=== PATIENT | female | born 1990 | race Two or more races ===

== ENCOUNTER 2024-09-06 20:22 | Emergency (ER) | payer MEDICAID, SELFPAY | END 2024-09-06 20:26 | disposition left against medical advice (07) | LOC: SERX 20:28 | PROVIDERS: Emergency Provider Emergency Medicine | DX: Z53.21 Procedure and treatment not carried out due to patient leaving prior to being seen by health care provider (principal) ==

== ENCOUNTER 2024-10-06 20:16 | Emergency (ER) | payer MEDICAID, SELFPAY ==
[2024-10-06 20:17] VITALS: BMI 11.1
[2024-10-06 20:51] VITALS: BP 110/73; PULSE 93; RESP 18; TEMP 36.7; O2SAT 100
--- NOTE | 2024-10-06 22:10 | XR_ITS ---
Examination: Abdomen sonogram, Limited Date and time of exam: October 06, 2024 1039 hrs. Indications: Abdominal pain beginning 3 days ago Technique: Real-time lópez scale transabdominal sonographic images of the upper abdomen obtained. Findings: Cholelithiasis, normal gallbladder wall Normal common bile duct 0.3 cm Pancreatic head 2.7 cm Liver 18.6 cm smooth contour no focal liver lesions Normal hepatopedal portal venous flow Patent IVC Impression: Cholelithiasis, negative for cholecystitis Hepatomegaly 18.6 cm no focal liver lesions
--- NOTE | 2024-10-06 22:10 | EDRME_ITS ---
Rapid Medical Screening Exam [facility] Arrival date/time: 10/06/24 20:16 34F with history of gallstones presents to ED with RUQ/epigastric pain and N/V. Patient was supposed to get gallbladder removed but she was at the time. Chief Complaint: Abdominal Pain Vital signs: Vital Signs Temperature 98.1 F 10/06/24 20:51 Pulse Rate 93 10/06/24 20:51 Respiratory Rate 18 10/06/24 20:51 Blood Pressure 110/73 10/06/24 20:51 Pulse Oximetry (%) 100 10/06/24 20:51 Oxygen Delivery Method Room Air 10/06/24 20:51
[2024-10-06 22:52] LABS: Collection Type, Urine Clean Catch
[2024-10-06 23:05] LABS: HCG Qualitative,Urine Negative
[2024-10-06 23:05] LABS: Basophils % (Auto) 0 % (0-2.5); Eosinophils # (Auto) 0.1 Thou/mm3 (0.0-0.5); Eosinophils % (Auto) 1 % (0-10); Hematocrit 39.7 % (36.0-46.0); Hemoglobin 12.3 g/dL (12.0-16.0); Immature Granulocytes % (Auto) 0 % (0-0); Immature Granulocytes Auto 0.02 Thou/mm3 (0.00-0.00); Lymphocytes # (Auto) 3.5 Thou/mm3 (1.0-4.8); Lymphocytes % (Auto) 32 % (10-50); Mean Corpuscular Hemoglobin 25.3 pg (25.0-35.0); Mean Corpuscular Volume 82 fL (80-100); Monocytes # (Auto) 0.7 Thou/mm3 (0.0-0.8); Monocytes % (Auto) 6 % (0-12); Neutrophils # (Auto) 6.6 Thou/mm3 (1.8-7.7); Neutrophils % (Auto) 60 % (37-80); Nucleated Red Blood Cell % 0 /100 WBC (0); Platelet Count 408 Thou/mm3 (140-440); RDW Standard Deviation 55.3 fL (36.4-46.3); Red Blood Count 4.87 Miln/mm3 (4.00-5.20)
[2024-10-06 23:06] LABS: Bilirubin,Urine Negative (Negative); Blood,Urine 1+ (Negative); Clarity,Urine Turbid (Clear/Hazy); Color,Urine Yellow (Lt Yel-Yel); Glucose, Urine Negative (Negative); Ketones,Urine Negative (Negative); Leukocyte Esterase,Urine Positive (Negative); Nitrite,Urine Negative (Negative); PH,Urine 6.5 (5.0-7.0); Protein,Urine 1+ (Neg - Trace); RBC,Urine 23 /hpf (0-3); Specific Gravity,Urine 1.029 (1.001-1.035); Squamous Epithelial Cell,Urine 9 /hpf (0-5); Urobilinogen,Urine Negative mg/dL (0.0-1.0); WBC,Urine 48 /hpf (0-5)
[2024-10-06 23:06] LABS: Alanine Aminotransferase 17 U/L (10-49); Albumin, Serum 4.9 gm/dL (3.5-5.0); Albumin/Globulin Ratio 1.7 (1.2-2.2); Alkaline Phosphatase 129 U/L (46-116); Anion Gap 6 (7-16); Aspartate Amino Transferase 13 U/L (0-34); BUN/Creatinine Ratio 20 Ratio (12-20); Bilirubin,Total 0.7 mg/dL (0.3-1.2); Blood Urea Nitrogen 12 mg/dL (9-23); Calcium 10.7 mg/dL (8.3-10.6); Calcium (Corrected) 10.7 mg/dL (8.5-10.1); Carbon Dioxide 32.7 mMol/L (20.0-31.0); Chloride 100 mMol/L (98-107); Creatinine (Component) 0.6 mg/dL (0.6-1.3); Estimated Creatinine Clearance 61.5 mL/min (>60); Globulin 2.9 gm/dL (2.3-3.5); Glucose 126 mg/dL (74-106); Lipase 26 U/L (12-53); Osmolality,Calculated 279 (275-295); Potassium 3.9 mMol/L (3.4-5.1); Sodium 139 mMol/L (136-145); Total Protein 7.8 gm/dL (5.7-8.2); eGFR > 60 See Note
[2024-10-06 23:21] LABS: Amphetamine/Methamp Scrn,U Positive (Negative); Barbiturate Screen,Urine Negative (Negative); Benzodiazepines Screen,Urine Negative (Negative); Benzoylecgonine Screen, Ur Negative (Negative); Fentanyl Screen,Urine Negative (Negative); Opiate Screen,Urine Negative (Negative); THC Screen,Urine Negative (Negative)
[2024-10-06 23:56] VITALS: BP 122/91; PULSE 70; RESP 18; O2SAT 98
--- NOTE | 2024-10-06 23:56 | EDNOTE_ITS ---
ED Abdominal Pain RME/HPI General Chief Complaint: Abdominal Pain Stated complaint: RIGHT UPPER ABD PAIN Time seen by provider: 10/07/24 06:23 Arrival date/time: 10/06/24 20:16 RME / HPI RME / HPI narrative: 10/06/24 20:16 34F with history of gallstones presents to ED with RUQ/epigastric pain and N/V. Patient was supposed to get gallbladder removed but she was at the time. ------ Dr. Foley?s Main ED Evaluation: 34yo female with a history of gallstones presents to the ED for a chief complaint of RUQ pain x 3 days. Patient currently rates her pain 6-7 out of 10 in severity. She states she hasn't been able to eat or drink anything for the last 3 days, reporting she's had persistent nausea and vomiting. She denies any fever, chills or any other associated symptoms. Patient states she was told 6 months ago she had gallstones, but was unable to have anything done due to being at the time. Related Data Home Medications ?Medication ?Instructions ?Recorded ?Confirmed prenat.vits,shawnee,[id number] 1 tab PO QDAY 04/11/24 06/25/24 Allergies Allergy/AdvReac Type Severity Reaction Status Date / Time adhesive tape Allergy Intermediate Rash Verified 10/06/24 20:19 Review of Systems Review of Systems Systems Reviewed: All systems reviewed, normal except as documented Narrative Review of Systems: Gen: No fever, no chills, no weight loss EYES: No discharge, no visual changes, no pain HEENT: No ear pain, no congestion, no sore throat PULM: No shortness of breath, no cough, no congestion CV: No chest pain, no dyspnea on exertion, no palpitations GI: + nausea, + vomiting, no diarrhea, + pain, no constipation : No frequency, no urgency, no dysuria Musc/skel: No joint pain, no back pain Skin: No rash. Warm and dry. Psyc: No hallucinations, no depression Heme/Lymph: No easy bleeding or bruising tendencies Neuro: No weakness, no headache Past Medical History Past Medical History NEUROLOGIC: Positive Neurological Disorders and Migraine; Negative Seizures CARDIAC: Negative Cardiac Disorders or Congestive Heart Failure RESPIRATORY: Positive Asthma (last use of inhaler unknown); Negative Chronic Obstructive Pulmonary Disease (COPD) GASTROINTESTINAL: Negative Gastrointestinal Disorders GENITOURINARY: Negative Genitourinary Disorders or Renal Disease REPRODUCTIVE: Positive Previous Pregnancies and Syphilis (2018) MUSCULOSKELETAL: Negative Musculoskeletal Disorders ENDOCRINE: Positive Endocrine Disorders; Negative Diabetes Mellitus Type 1 or Diabetes Mellitus Type 2 HEMATOLOGIC: Positive Blood Disorders and Anemia (hx of anemia no medication at this time) PSYCHO/SOCIAL: Positive Recreational Drug Use, Depression, Anxiety, Attention Deficit Hyperactivity Disorder and Post Traumatic Stress Disorder OTHER HISTORY: Negative Autoimmune Disease, Blood Transfusions, Blood Transfusion Reaction or Anesthesia Reactions Family History FAMILY HISTORY: Positive Family Psychiatric Problems (ptsd, possible boderline personality disorder, adhd), Family Respiratory Disorders, Family Cardiac Disorders (htn, brother stroke) and Family Cancer (mom-kidney CA); Negative Family Gastrointestinal Problems, Family Surgery or Family Anesthesia Reaction Surgical History SURGICAL: Positive Abdominal Surgery and Section (x3) Social History SMOKING STATUS: Never smoker ED Exam Narrative Physical exam: GENERAL APPEARANCE: alert and oriented x 4, well-developed, well-nourished, no acute distress VITALS: All vitals were reviewed and the pulse ox is 100% on room air, which is normal according to my interpretation. HEENT: Normocephalic, atraumatic; pupils equal, round, reactive to light; EOMI; mucous membranes pink, moist; oropharynx clear NECK: Supple LUNGS: CTABL; no wheezes, no rales, no rhonchi HEART: Regular rate, regular rhythm; normal S1, S2; no murmurs ABDOMEN: non distended; normal BS; soft, mild RUQ tenderness, no Estrada sign, no guarding, no rebound; no masses, no organomegaly, no hernia BACK: no CVA tenderness EXTREMITIES: atraumatic; no edema NEUROLOGIC: awake; alert and oriented x4; cranial nerves II-XII grossly intact; no focal sensory or motor deficits PSYCHIATRIC: appropriate mood and affect SKIN: warm, dry, normal color; no rashes Course Course Course Narrative: CXR is ordered for determining the etiology of cough. 0600: Care signed out to Dr. French (emergency physician). Past medical, surgical, social and family history reviewed. Vitals and home medications reviewed. Results and treatment plan discussed. They will assume the care of the patient at this time and will follow the patient, pending MRCP. Quality Measures none Orders Category Date Time Status Business Area Director NOW Care 10/07/24 00:06 Completed Continuous Pulse Oximetry NOW Care 10/07/24 00:06 Completed MRI Screening NOW Care 10/07/24 04:09 Completed MR MRCP Stat Exams 10/07/24 Completed US gall bladder Stat Exams 10/06/24 22:10 Completed XR chest 1V portable Stat Exams 10/07/24 00:06 Completed CBC Stat Lab 10/06/24 22:30 Completed CMP [Comprehensive Metabolic Panel] Stat Lab 10/06/24 22:30 Completed Drug Screen,Urine Stat Lab 10/06/24 22:39 Completed HCG Qualitative,Urine Stat Lab 10/06/24 22:39 Completed Lipase Stat Lab 10/06/24 22:30 Completed UA [Urinalysis] Stat Lab 10/06/24 22:39 Completed LORazepam [Ativan Inj] Med 10/07/24 12:15 Discontinued 1 mg IVP X1 ONE Morphine Inj Med 10/07/24 00:06 Discontinued 2 mg IVP Q30M PRN Morphine Inj Med 10/07/24 00:06 Discontinued 4 mg IVP X1 ONE Ondansetron Inj [Zofran Inj] Med 10/07/24 00:06 Discontinued 4 mg IV X1 ONE cefTRIAXone/D5w 1gm IV premix [Rocephin/D5w 1gm IV Med 10/07/24 00:08 Discontinued premix] 50 ml IV X1 Vital Signs Vital signs: Vital Signs Temperature 98.1 F 10/06/24 20:51 Pulse Rate 93 10/06/24 20:51 Respiratory Rate 18 10/06/24 20:51 Blood Pressure 110/73 10/06/24 20:51 Pulse Oximetry (%) 100 10/06/24 20:51 Oxygen Delivery Method Room Air 10/06/24 20:51 Abdominal Pain MDM MDM Narrative MDM Narrative:: Scribe Attestation: 10/06/24 - Nitza Mendez am scribing for and in the presence of Dr. Foley. Patient data External records reviewed:: [facility] previous records (Per chart review, patient has no relevant previous ED visits.) Clinical information provided by:: patient Social determinants that could affect healthcare access:: none Patient has the following chronic illnesses:: asthma, anemia How is presenting disease/condition affected by chronic disease/condition?: uneffected by Evaluation data The following diagnostics were reviewed and interpreted by me:: lab results and radiology exam(s) Lab and/or radiology exams considered but not ordered:: none Interpretation Summary: CBC is normal, Alkaline Phosphatase is elevated, UA is positive for a UTI, UDS is positive for methamphetamines, according to my interpretation. CXR shows normal cardiac silhouette, normal sharp diaphragmatic edge, no infiltrates, normal costophrenic angles, according to my interpretation. ----- [facility] Report Signed Patient: DEV ANTONIO Record#: [id number] Birthdate: 1990 Age/Sex: 34 / F Location: [facility] Attending Dr: Ordering Physician: Joaquin Paul PA-C Date of Service: 10/06/24 Procedure(s): US gall bladder Accession Number(s): [id number] cc: Micha Valverde MD; Martínez Moreno MD; Joaquin Paul PA-C~ Examination: Abdomen sonogram, Limited Date and time of exam: October 06, 2024 1039 hrs. Indications: Abdominal pain beginning 3 days ago Technique: Real-time lópez scale transabdominal sonographic images of the upper abdomen obtained. Findings: Cholelithiasis, normal gallbladder wall Normal common bile duct 0.3 cm Pancreatic head 2.7 cm Liver 18.6 cm smooth contour no focal liver lesions Normal hepatopedal portal venous flow Patent IVC Impression: Cholelithiasis, negative for cholecystitis Hepatomegaly 18.6 cm no focal liver lesions Dictated By: Martínez Moreno MD Signed By: <Electronically signed by Martínez Moreno MD in [place]> 10/06/24 3684 Medications / Prescriptions Medications or Prescriptions considered but not ordered:: none Medication administrations:: Medication Administration History Discontinued Medications Ceftriaxone Sodium/Dextrose (Rocephin/D5w 1gm Iv Premix) 50 mls @ 100 mls/hr IV X1 ONE Stop: 10/07/24 00:37 Last Infusion: 10/07/24 02:08 Dose: Infused Documented By: Admin: 10/07/24 01:03 Dose: 100 mls/hr Documented By: LUIS FERNANDO Lorazepam (Lorazepam 2 Mg/Ml Vial) 1 mg IVP X1 ONE Stop: 10/07/24 12:16 Last Admin: 10/07/24 12:10 Dose: 1 mg Documented By: SESAR Morphine Sulfate (Morphine Sulf Inj 10 Mg/Ml Vial) 4 mg IVP X1 ONE Stop: 10/07/24 00:07 Last Admin: 10/07/24 01:01 Dose: 4 mg Documented By: LUIS FERNANDO Morphine Sulfate (Morphine Sulf Inj 10 Mg/Ml Vial) 2 mg IVP Q30M PRN PRN Reason: abdominal pain Ondansetron HCl (Ondansetron Inj 2 Mg/Ml Inj 2 Ml) 4 mg IV X1 ONE; Protocol Stop: 10/07/24 00:07 Last Admin: 10/07/24 01:01 Dose: 4 mg Documented By: LUIS FERNANDO see above Consultations Consultation(s) initiated? (list below): No Diagnosis Differential diagnosis abdominal pain: acute appendicitis, diverticulitis, pancreatitis and other (cholelithiasis, cholecystitis) Most likely diagnosis given after review of the tests above:: see below Admission Indicated Admission indicated?: not indicated Admission Request Was there a request for admission?: No Disposition Plan Disposition Plan: other (specify) (Signed out to Dr. French at 0600 pending [facility].) Discharge Plan Plan Patient Disposition: HOME (Self Care) Prescriptions/Referrals Prescriptions/Med Rec: No Action prenat.vits,shawnee,[id number] Tablet 1 tab PO QDAY Referrals: Micha Valverde MD [Primary Care Provider] - In 1 week Turner Lombardo MD [Physician] - In 1 week Problem List Clinical Impression: Cholelithiasis Patient/Caregiver Discharge Instructions Education Materials: ED Gallstones with Biliary Colic Additional Instructions: Follow-up with your primary doctor in 2-3 days if symptoms or not improving. You can return to the emergency department sooner symptoms worsen or if you notice any new or concerning issues. Print Language: Namibian Stand Alone Forms: [facility] Award Info., Patient Portal Info Letter
[2024-10-07] VITALS (13 sets, daily range): BP systolic 105–128; BP diastolic 66–85; PULSE 69–105; RESP 14–18; TEMP 36.4–36.9; O2SAT 95–100
--- NOTE | 2024-10-07 | XR_ITS ---
MRI abdomen, without contrast. MRCP Date and time of exam: September 29, 2024 1212 hrs. Indications: Epigastric pain elevated alkaline phosphatase today, right upper abdominal pain beginning 3 days ago, ultrasound study yesterday cholelithiasis Technique: Multiple axial and coronal images of the abdomen have been obtained with the Siemens 1.5T MRI scanner. Images obtained included T1 weighted transverse images, T2-weighted transverse images, T2-weighted transverse images fat-suppressed, T2 weighted haste fat suppressed transverse images, T1 weighted images, in and out of phase images, T2-weighted coronal images, breath hold, T2 weighted haze coronal images as well as T2 weighted coronal thick slab images, MRCP. Findings: Hepatomegaly 19 cm No extra hepatic biliary tract dilatation Gallstones are not visible on this study, negative for cholecystitis Common hepatic or common bile duct are not enlarged No pancreatic mass or peripancreatic edema Spleen is not enlarged No ascites No hydronephrosis Impression: Moderate hepatomegaly Negative for cholecystitis, please see the gallbladder sonogram report July 07, 2024 No extrahepatic biliary tract obstruction, negative for common hepatic common bile duct stones
--- NOTE | 2024-10-07 00:06 | XR_ITS ---
Examination: AP chest single view Technique one AP portable upright chest single view Exam date and time: October 07, 2024 0018 hrs. Indications: Right upper abdominal pain coughing today Findings: Normal heart size Lungs are clear. The osseous structures are intact Impression: No active disease
[2024-10-07] MEDS: MORPHINE SULF INJ 10 MG/ML VIAL 4 MG IVP (01:01)
[2024-10-07] MEDS: ONDANSETRON INJ 2 MG/ML INJ 2 ML 4 MG IV (01:01)
[2024-10-07] MEDS: cefTRIAXone/D5w 1gm IV premix 50 ML IV (01:03)
--- NOTE | 2024-10-07 07:28 | PD.EDADDENDU ---
Emergency Room Addendum Addendum Narrative: 0600: Care assumed by previous shift provider. Past medical, surgical, social and family history reviewed. Vitals and home medications reviewed. Results and treatment plan discussed. I will assume the care of the patient at this time and will follow the patient, pending final disposition. Pending MRCP results. MRCP previous otherwise unremarkable patient is sleeping and pain-free. She will be discharged with instruction to follow-up with general surgery for cholelithiasis and possibly an episode of biliary colic last night. Ordering Physician: Sav Foley MD Date of Service: 10/07/24 Procedure(s): MR MRCP Accession Number(s): [id number] cc: Micha Valverde MD; Martínez Moreno MD; Sav Foley MD~ MRI abdomen, without contrast. MRCP Date and time of exam: September 29, 2024 1212 hrs. Indications: Epigastric pain elevated alkaline phosphatase today, right upper abdominal pain beginning 3 days ago, ultrasound study yesterday cholelithiasis Findings: Hepatomegaly 19 cm No extra hepatic biliary tract dilatation Gallstones are not visible on this study, negative for cholecystitis Common hepatic or common bile duct are not enlarged No pancreatic mass or peripancreatic edema Spleen is not enlarged No ascites No hydronephrosis Impression: Moderate hepatomegaly Negative for cholecystitis, please see the gallbladder sonogram report July 07, 2024 No extrahepatic biliary tract obstruction, negative for common hepatic common bile duct stones Dictated By: Martínez Moreno MD Signed By: <Electronically signed by Martínez Moreno MD in [place]> 10/07/24 0994
--- NOTE | 2024-10-07 07:44 | PC.NURSE ---
Assuming care of patient. GCS 15 aaox4. Patient states she is not in pain. Patient resting comfortably
[2024-10-07] MEDS: LORazepam 2 MG/ML VIAL 1 MG IVP (12:10)
== END 2024-10-07 16:04 | disposition home or self-care (01) ==
PROVIDERS: Physician Assistant; Emergency Provider Emergency Medicine; PCP Family Medicine
DX: K80.20 Calculus of gallbladder without cholecystitis without obstruction (principal); R16.0 Hepatomegaly, not elsewhere classified; R05.9 Cough, unspecified
CPT/HCPCS: 36415; 71045; 76705; 80053; 80307; 81001; 81025; 83690; 85025; 96365; 96375; 99284; J0696; J2060; J2270; J2405; S8037; 74181

== ENCOUNTER 2025-05-11 22:49 | Inpatient (IN) | payer MEDICAID, SELFPAY ==
[2025-05-11 22:51] VITALS: BMI 27.4
[2025-05-11 23:03] VITALS: BP 100/69; PULSE 103; RESP 18; TEMP 36.6; O2SAT 100
--- NOTE | 2025-05-11 23:09 | EKG_ITS ---
[facility] Test Date: 2025-05-11 Pat Name: DEV ANTONIO Department: Room: - Gender: Female [employer]er: : 1990 Requested By: Joaquin Paul Order Number: [id number] Reading MD: Joaquin Paul Measurements Intervals [place] Rate: 104 P: 33 CA: 136 QRS: 58 QRSD: 88 T: 7 QT: 324 QTc: 427 Interpretive Statements SINUS TACHYCARDIA NONSPECIFIC T-WAVE ABNORMALITY ABNORMAL RHYTHM ECG No previous ECG available for comparison /store/S0/[id number]/ecg/[id number].pdf
[2025-05-12] VITALS (16 sets, daily range): BP systolic 88–111; BP diastolic 51–65; PULSE 75–102; RESP 14–100; TEMP 35.8–37; O2SAT 94–100; BMI 28.5; BMI 26.9
--- NOTE | 2025-05-12 00:06 | EDRME_ITS ---
Rapid Medical Screening Exam [facility] Arrival date/time: 05/11/25 22:49 35F with history of alcohol/drug use presents to ED with 1 day of generalized weakness/dizziness, as well as bloody diarrhea. Chief Complaint: General Adult/Misc Complain Vital signs: Vital Signs Temperature 98 F 05/11/25 23:03 Pulse Rate 103 H 05/11/25 23:03 Respiratory Rate 18 05/11/25 23:03 Blood Pressure 100/69 05/11/25 23:03 Pulse Oximetry (%) 100 05/11/25 23:03 Oxygen Delivery Method Room Air 05/11/25 23:03
[2025-05-12 00:44] LABS: Collection Type, Urine Clean Catch
[2025-05-12 00:50] LABS: Bilirubin,Urine Negative (Negative); Blood,Urine 3+ (Negative); Clarity,Urine Clear (Clear/Hazy); Color,Urine Lt-Yellow (Lt Yel-Yel); Culture Indicated,Urine Not Indicated; Glucose, Urine Negative (Negative); Ketones,Urine Negative (Negative); Leukocyte Esterase,Urine Positive (Negative); Nitrite,Urine Negative (Negative); PH,Urine 6.0 (5.0-7.0); Protein,Urine Trace (Neg - Trace); RBC,Urine 4 /hpf (0-3); Specific Gravity,Urine 1.035 (1.001-1.035); Squamous Epithelial Cell,Urine 3 /hpf (0-5); Urobilinogen,Urine Negative mg/dL (0.0-1.0); WBC,Urine 7 /hpf (0-5)
[2025-05-12 00:55] LABS: HCG Qualitative,Urine Negative
[2025-05-12 00:56] LABS: Basophils # (Auto) 0.1 Thou/mm3 (0.0-0.2); Basophils % (Auto) 1 % (0-2.5); Eosinophils # (Auto) 0.1 Thou/mm3 (0.0-0.5); Eosinophils % (Auto) 1 % (0-10); Hematocrit 24.5 % (36.0-46.0); Immature Granulocytes Auto 0.02 Thou/mm3 (0.00-0.00); Lymphocytes # (Auto) 4.0 Thou/mm3 (1.0-4.8); Lymphocytes % (Auto) 40 % (10-50); Mean Corpuscular HGB Conc 30.2 g/dl (31.0-37.0); Mean Corpuscular Hemoglobin 23.3 pg (25.0-35.0); Mean Corpuscular Volume 77 fL (80-100); Monocytes # (Auto) 0.6 Thou/mm3 (0.0-0.8); Monocytes % (Auto) 6 % (0-12); Neutrophils # (Auto) 5.4 Thou/mm3 (1.8-7.7); Neutrophils % (Auto) 53 % (37-80); Nucleated Red Blood Cell # 0.00 Thou/mm3 (0.00-0.00); Nucleated Red Blood Cell % 0 /100 WBC (0); Platelet Count 420 Thou/mm3 (140-440); RDW Standard Deviation 53.2 fL (36.4-46.3); Red Blood Count 3.17 Miln/mm3 (4.00-5.20); White Blood Count 10.2 Thou/mm3 (3.6-11.0)
[2025-05-12 00:57] LABS: Hemoglobin 7.4 g/dL (12.0-16.0)
[2025-05-12 01:04] LABS: INR 1.0 (0.9-1.3); Partial Thromboplastin Time 23.5 Seconds (22.0-36.0); Prothrombin Time 10.9 Seconds (9.0-12.2)
[2025-05-12 01:16] LABS: Alanine Aminotransferase < 7 U/L (10-49); Albumin, Serum 4.5 gm/dL (3.5-5.0); Albumin/Globulin Ratio 2.0 (1.2-2.2); Alkaline Phosphatase 89 U/L (46-116); Anion Gap 11 (7-16); Aspartate Amino Transferase 10 U/L (0-34); BUN/Creatinine Ratio 34 Ratio (12-20); Bilirubin,Total 0.4 mg/dL (0.3-1.2); Blood Urea Nitrogen 24 mg/dL (9-23); Calcium 8.8 mg/dL (8.3-10.6); Calcium (Corrected) 8.8 mg/dL (8.5-10.1); Carbon Dioxide 26.3 mMol/L (20.0-31.0); Chloride 104 mMol/L (98-107); Creatinine (Component) 0.7 mg/dL (0.6-1.3); Estimated Creatinine Clearance 109.5 mL/min (>60); Globulin 2.2 gm/dL (2.3-3.5); Glucose 102 mg/dL (74-106); Osmolality,Calculated 285 (275-295); Potassium 4.5 mMol/L (3.4-5.1); Sodium 141 mMol/L (136-145); Total Protein 6.7 gm/dL (5.7-8.2); Troponin I < 0.002 ng/mL (0.0-0.045); eGFR > 60 See Note
[2025-05-12 01:21] LABS: Amphetamine/Methamp Scrn,U Positive (Negative); Barbiturate Screen,Urine Negative (Negative); Benzodiazepines Screen,Urine Negative (Negative); Benzoylecgonine Screen, Ur Negative (Negative); Fentanyl Screen,Urine Negative (Negative); Opiate Screen,Urine Negative (Negative); THC Screen,Urine Positive (Negative)
--- NOTE | 2025-05-12 06:45 | PD.EDGIBLD ---
ED GI Bleed RME/HPI General Chief complaint: General Adult/Misc Complain Stated complaint: DIZZINESS WEAKNESS Time Seen by Provider: 05/12/25 01:28 Arrival date/time: 05/11/25 22:49 Limitations: no limitations RME / HPI RME / HPI Narrative: 05/11/25 22:49 35F with history of alcohol/drug use presents to ED with 1 day of generalized weakness/dizziness, as well as bloody diarrhea. DR. 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 Patient reports three episodes of rectal bleeding yesterday and another episode today. She felt dizzy when getting up yesterday and was carrying a stool sample that contained dameon blood. She also notes that her urine appears more concentrated than usual. No other associated symptoms reported at this time. Related Data Home Medications ?Medication ?Instructions ?Recorded ?Confirmed prenat.vits,shawnee,ugp-klea-xneok 1 tab PO QDAY 04/11/24 06/25/24 Allergies Allergy/AdvReac Type Severity Reaction Status Date / Time adhesive tape Allergy Intermediate Rash Verified 05/11/25 22:59 Review of Systems Review of Systems Systems Reviewed: All systems reviewed, normal except as documented Past Medical History Past Medical History NEUROLOGIC: Positive Neurological Disorders and Migraine RESPIRATORY: Positive Asthma REPRODUCTIVE: Positive Previous Pregnancies and Syphilis ENDOCRINE: Positive Endocrine Disorders HEMATOLOGIC: Positive Blood Disorders and Anemia PSYCHO/SOCIAL: Positive Recreational Drug Use, Depression, Anxiety, Attention Deficit Hyperactivity Disorder and Post Traumatic Stress Disorder Family History FAMILY HISTORY: Positive Family Psychiatric Problems, Family Respiratory Disorders, Family Cardiac Disorders and Family Cancer Surgical History SURGICAL: Positive Section (x2) Social History SMOKING STATUS: Never smoker SUBSTANCE USE: methamphetamine (mcc) ALCOHOL: Current ALCOHOL FREQUENCY: 0-2 Drinks per Day ED Exam Narrative Physical exam: She was carrying a stool sample with dameon blood. General Limitations: Present no limitations General appearance: Present alert and in no apparent distress Head Head exam: Present atraumatic, normocephalic and normal inspection Eye Eye exam: Present normal appearance, PERRL and EOMI ENT ENT exam: Present normal exam, normal oropharynx and mucous membranes moist Neck Neck exam: Present normal inspection, full ROM and trachea midline Chest Chest inspection: Present normal inspection and symmetric chest wall rise Respiratory Respiratory exam: Present normal lung sounds bilaterally Cardiovascular Cardiovascular exam: Present normal rhythm, tachycardia and normal heart sounds Abdominal Exam Abdominal exam: Present soft and normal bowel sounds Extremities Exam Extremities exam: Present normal inspection and full ROM Back Exam Back exam: Present normal inspection and full ROM Neurological Exam Neurological exam: Present alert, oriented X3 and CN II-XII intact Psychiatric Psychiatric exam: Present normal affect and normal mood Skin Skin exam: Present warm, dry, intact and normal color Course Quality Measures none Orders Category Date Time Status Blood glucose [Bedside Blood Glucose] NOW Care 05/11/25 23:09 Active COVID-19 Screening Questionnaire NOW Care 05/12/25 10:40 Active Forestry Biology Specialist NOW Care 05/12/25 06:48 Active Continuous Pulse Oximetry NOW Care 05/12/25 06:48 Completed Decision to Admit X1 Care 05/12/25 10:39 Active EKG (ED ONLY) *Do not use* NOW Care 05/11/25 23:09 Completed Insert IV NOW Care 05/12/25 06:48 Completed Occult Blood,Stool (Nursing) NOW Care 05/12/25 06:46 Active Consult to Gastroenterology Stat Cons 05/12/25 10:39 Ordered EKG (ED Only) Stat Exams 05/11/25 23:09 Draft Blood Culture (Lab) Stat Lab 05/12/25 10:36 Ordered CBC Stat Lab 05/12/25 00:14 Completed CBC Stat Lab 05/12/25 06:53 Completed CMP [Comprehensive Metabolic Panel] Stat Lab 05/12/25 00:14 Completed Drug Screen,Urine Stat Lab 05/12/25 00:00 Completed HCG Qualitative,Urine Stat Lab 05/12/25 00:00 Completed INR [Prothrombin Time with INR] Stat Lab 05/12/25 00:14 Completed Lactate (Lactic Acid) Stat Lab 05/12/25 10:36 Ordered PTT [Partial Thromboplastin Time] Stat Lab 05/12/25 00:14 Completed Stool Culture Stat Lab 05/12/25 06:55 Received Stool for WBCs Stat Lab 05/12/25 06:55 Received Troponin I Stat Lab 05/12/25 00:14 Completed Type and Screen Stat Lab 05/12/25 06:53 Results Urinalysis Stat Lab 05/12/25 09:15 Completed Urinalysis, C/S if Indicated Stat Lab 05/12/25 00:00 Completed prbc [Red Blood Cells] Stat Lab 05/12/25 06:53 Results Piper/Tazo 3.375 gm Premix [Zosyn] Med 05/12/25 10:36 Active 3.375 gm in 50 ml IV X1 Sodium Chloride 0.9% 1000 ml [Ns] 1,000 ml Med 05/12/25 06:46 Active IV 100 mls/hr Sodium Chloride 0.9% 1000 ml [Ns] 1,000 ml Med 05/12/25 06:46 Discontinued IV 999 mls/hr Oxygen Delivery NOW RT 05/12/25 06:48 Active Vital Signs Vital signs: Vital Signs Temperature 98 F 05/11/25 23:03 Pulse Rate 103 H 05/11/25 23:03 Respiratory Rate 18 05/11/25 23:03 Blood Pressure 100/69 05/11/25 23:03 Pulse Oximetry (%) 100 05/11/25 23:03 Oxygen Delivery Method Room Air 05/11/25 23:03 GI Bleed MDM Narrative MDM Narrative:: I, Katy Peralta am scribing for and in the presence of Dr. Sanders. 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 How is presenting disease/condition affected by chronic disease/condition?: exacerbated by Evaluation data The following diagnostics were reviewed and interpreted by me:: lab results and EKG tracing(s) Lab and/or radiology exams considered but not ordered:: none Interpretation Summary: My interpretation: EKG 05/11/2025 performed at 2328 hours, sinus tachycardia, rate 104, no acute changes, no STEMI Medications / Prescriptions Medications or Prescriptions considered but not ordered:: none Medication administrations:: Medication Administration History Sodium Chloride (Ns) 1,000 mls @ 100 mls/hr IV .Q10H ONE Stop: 05/12/25 16:45 Last Infusion: 05/12/25 06:58 Dose: 0 mls/hr Documented By: Admin: 05/12/25 06:57 Dose: 100 mls/hr Documented By: DT Piperacillin/Tazobactam/Dextrose (Zosyn) 3.375 gm in 50 mls @ 100 mls/hr IV X1 ONE Stop: 05/12/25 11:05 Discontinued Medications Sodium Chloride (Ns) 1,000 mls @ 999 mls/hr IV .Q1H1M ONE Stop: 05/12/25 07:46 Last Infusion: 05/12/25 08:27 Dose: Infused Documented By: Admin: 05/12/25 07:26 Dose: 999 mls/hr Documented By: THANG see above Consultations Consultation(s) initiated? (list below): Yes Consultation #1 (Physician, Specialty, Details): Discussed test HPI, PMHx, lab, radiology results and/or management with Dr. Garcia. Will consult an admission to the hospitalist. Time: 10:40 Consultation #2 (Physician, Specialty, Details): Discussed test HPI, PMHx, lab, radiology results and/or management with resident working with the hospitalist. Will admit for further evaluation and management. Accepts patient for admission. Time: 10:45 Diagnosis GI bleed differential diagnosis: other (lower GI from hemorrhoids or anal fissures, bleeding secondary to portal hypertension, rectal varices, coagulopathy due to liver dysfunction) Most likely diagnosis given after review of the tests above:: GI bleed Anemia Liver cirrhosis Admission Indicated Admission indicated?: indicated Admission Request Was there a request for admission?: Yes Admission Attestation Admission request attestation: Discussed case with [] from Hospitalist service regarding admission. Discussed patients ED course, exam findings, labs, and radiology results. The Hospitalist [agrees,declines] to accept the patient for admission. Disposition Plan Disposition Plan: Admit Discharge Plan Plan Patient Disposition: Admit Acute Care w/in Hospital Prescriptions/Referrals Prescriptions/Med Rec: No Action prenat.vits,shawnee,syx-kzko-waigc Tablet 1 tab PO QDAY Referrals: Micha Valverde MD [Primary Care Provider] - In 1 week Problem List Clinical Impression: GI bleed, Anemia, Cirrhosis of liver Patient/Caregiver Discharge Instructions Print Language: Comoran Stand Alone Forms: Chantal Award Info., Patient Portal Info Letter
[2025-05-12] MEDS: SODIUM CHLORIDE 0.9% 1000 ML 1,000 ML 100 ML IV (06:57)
[2025-05-12 07:22] LABS: Basophils # (Auto) 0.1 Thou/mm3 (0.0-0.2); Basophils % (Auto) 1 % (0-2.5); Eosinophils # (Auto) 0.1 Thou/mm3 (0.0-0.5); Eosinophils % (Auto) 1 % (0-10); Hematocrit 24.7 % (36.0-46.0); Immature Granulocytes Auto 0.03 Thou/mm3 (0.00-0.00); Lymphocytes # (Auto) 4.5 Thou/mm3 (1.0-4.8); Lymphocytes % (Auto) 42 % (10-50); Mean Corpuscular HGB Conc 30.4 g/dl (31.0-37.0); Mean Corpuscular Hemoglobin 23.4 pg (25.0-35.0); Mean Corpuscular Volume 77 fL (80-100); Monocytes # (Auto) 0.8 Thou/mm3 (0.0-0.8); Monocytes % (Auto) 7 % (0-12); Neutrophils # (Auto) 5.3 Thou/mm3 (1.8-7.7); Neutrophils % (Auto) 49 % (37-80); Nucleated Red Blood Cell # 0.00 Thou/mm3 (0.00-0.00); Nucleated Red Blood Cell % 0 /100 WBC (0); Platelet Count 396 Thou/mm3 (140-440); RDW Standard Deviation 53.0 fL (36.4-46.3); Red Blood Count 3.21 Miln/mm3 (4.00-5.20); White Blood Count 10.8 Thou/mm3 (3.6-11.0)
[2025-05-12 07:25] LABS: Hemoglobin 7.5 g/dL (12.0-16.0)
[2025-05-12] MEDS: SODIUM CHLORIDE 0.9% 1000 ML 1,000 ML 999 ML IV (07:26)
[2025-05-12 09:39] LABS: Collection Type, Urine Clean Catch
[2025-05-12 10:13] LABS: Bilirubin,Urine Negative (Negative); Blood,Urine 1+ (Negative); Color,Urine Lt-Yellow (Lt Yel-Yel); Glucose, Urine Negative (Negative); Hyaline Casts,Urine < 1 /hpf (0-1); Ketones,Urine Negative (Negative); Leukocyte Esterase,Urine Negative (Negative); Nitrite,Urine Negative (Negative); PH,Urine 6.0 (5.0-7.0); Protein,Urine Trace (Neg - Trace); RBC,Urine 3 /hpf (0-3); Specific Gravity,Urine 1.034 (1.001-1.035); Squamous Epithelial Cell,Urine 5 /hpf (0-5); Urobilinogen,Urine Negative mg/dL (0.0-1.0); WBC,Urine 18 /hpf (0-5)
[2025-05-12 10:22] LABS: Clarity,Urine Hazy (Clear/Hazy)
[2025-05-12] MEDS: PIPER/TAZO 3.375 GM PREMIX 3.375 GM/50 ML BAG IV (10:59)
[2025-05-12 11:26] LABS: Lactate (Lactic Acid) 2.4 mMol/L (0.4-2.0)
--- NOTE | 2025-05-12 11:37 | XR_ITS ---
Examination: Abdomen sonogram, Limited Date and time of exam: May 12, 2000 [id number] hours INDICATIONS: Blood in the stool beginning yesterday Technique: Real-time lópez scale transabdominal sonographic images of the upper abdomen obtained. Findings: Normal gallbladder Normal common bile duct 0.2 cm Pancreatic and 1.8 cm Liver 17.2 cm fatty infiltration smooth contour Normal hepatopedal portal venous flow Patent IVC IMPRESSION: Hepatomegaly with fatty infiltration no focal liver lesions.
--- NOTE | 2025-05-12 11:49 | ESHP_ITS ---
<Statement entered by Marc Morejon MD - 05/12/25 17:29> Patient was seen and examined at bedside. I agree on the assessment and plan on this note as documented by resident Mitzi Martinez PGY1. Ms. Swartz is a 35-year-old female with past medical history of NAFLD, gestational diabetes mellitus and methamphetamine use who presented to [facility] with a chief complaint of blood in stool. Patient shows pictures of bright red blood/dark blood in stool, reports that she has been feeling dizzy lightheaded and has difficulty thinking had an episode of near syncope, denies any loss of consciousness or fall. Patient denies taking any medications at home, does smoke vape, urine tox screen was positive for methamphetamine and THC, denies any drug use. Patient was noted to be tachycardic and with a MAP of 66 at bedside, did receive NS bolus in ED, pending 1 unit PRBC transfusion. Will follow H&H posttransfusion, otherwise we will consult GI, obtain liver ultrasound, low suspicion of cirrhosis/esophageal varices, started on Protonix 40 twice daily, was given loading dose Protonix. Patient will undergo EGD and further workup for upper versus lower GI bleed per gastroenterology recommendations. Case discussed with attending Dr. Gerson Morejon MD PGY-2 Documentation for date of: 05/12/25 HPI History of Present Illness Chief complaint: rectal bleeding History of present illness: Haydee Swartz is a 35F pmhx significant for methamphetamine use and suppose liver cirrhosis who presents to [facility] on 05/12 with rectal bleeding and weakness. Patient reports that yesterday afternoon she had 1 episode of bloody bowel movement with little stool. For the rest of yesterday she felt very lightheaded and not herself , feeling dizzy and had trouble thinking. Last night she was found by her cousin in the shower very lightheaded and almost passing out, prompting her to come to the ED. Patient denies loss of consciousness or head strike. Patient is never had this happen before. FDP 05/08 and ended yesterday. Patient currently denies chest pain, shortness of breath, fever, abdominal pain, or urinary symptoms. PMHx: reported cirrhosis, methanphetamine use, marijuana use Surgical Hx: 4 C-sections, most recent 10 months ago FHx: Mother renal cancer Social Hx: denies alcohol use. Occasionally uses nicotine vapes. Admits to smoking meth and marijuana Allergies: adhesive tapes Medications: None In ED, BP 100/69 HR 103, RR 19, temp 98, satting 100% RA.significant labs include a hemoglobin of 7.4 MCV 77, BUN 24, lactic acid 2.4, UA negative for infection, UDS positive for amphetamine and marijuana. In ED, given 1 L NS, Zosyn x 1, pantoprazole 80 mg x 1. GI was consulted. EKG shows sinus tachycardia with a rate of 104. Liver ultrasound showed hepatomegaly with fatty filtration and no focal liver lesions. Patient was admitted for GI bleed lower vs upper, for workup and management. Review of Systems Review of Systems Systems Reviewed: All systems reviewed, normal except as documented Exam Vital Signs Temp Pulse Resp BP Pulse Ox O2 Del Method 98.5 F 92 18 97/51 L 100 Room Air 05/12/25 10:28 05/12/25 10:05/12/25 10:05/12/25 10:05/12/25 10:05/12/25 10:28 Narrative Exam GENERAL: AOx3, no acute distress HEENT: NC/AT, mucous membranes moist, bilateral sclera anicteric CARDIOVASCULAR: regular rate and rhythm, S1/S2 present, no murmurs appreciated PULMONARY: clear to auscultation bilaterally, no rales/rhonchi/wheezes ABDOMINAL: soft, non-tender, non-distended, no rebound/guarding, bowel sounds present EXTREMITIES: no peripheral edema SKIN: warm and dry, intact, no rashes NEURO: CN II-XII grossly intact, no focal deficits, alert, following commands Results: Labs 05/12/25 06:53 05/12/25 00:14 Labs: Short CBC 05/12/25 05/12/25 Range/Units 00:14 06:53 WBC 10.2 10.8 (3.6-11.0) Thou/mm3 Hgb 7.4 L 7.5 L (12.0-16.0) g/dL Hct 24.5 L 24.7 L (36.0-46.0) % Plt Count 420 396 (140-440) Thou/mm3 BMP 05/12/25 00:14 Sodium 141 Potassium 4.5 Chloride 104 Carbon Dioxide 26.3 BUN 24 H Creatinine 0.7 Glucose 102 Calcium 8.8 Cardiac Enzymes 05/12/25 Range/Units 00:14 Troponin I < 0.002 (0.0-0.045) ng/mL Liver Function 05/12/25 Range/Units 00:14 Total Bilirubin 0.4 (0.3-1.2) mg/dL AST 10 (0-34) U/L ALT < 7 L (10-49) U/L Alkaline Phosphatase 89 (46-116) U/L Albumin 4.5 (3.5-5.0) gm/dL Urine 05/12/25 05/12/25 Range/Units 00:00 09:15 Urine Color Lt-Yellow Lt-Yellow (Lt Yel-Yel) Urine Clarity Clear Hazy (Clear/Hazy) Urine pH 6.0 6.0 (5.0-7.0) Ur Specific Floyd 1.035 1.034 (1.001-1.035) Urine Protein Trace Trace (Neg - Trace) Urine Glucose (UA) Negative Negative (Negative) Quality Measures Quality Measures none Medications Home Medications and Allergies Home Medications ?Medication ?Instructions ?Recorded ?Confirmed ?Type prenat.vits,shawnee,hzq-pzqr-zpbno 1 tab PO QDAY 04/11/24 06/25/24 History Allergies Allergy/AdvReac Type Severity Reaction Status Date / Time adhesive tape Allergy Intermediate Rash Verified 05/11/25 22:59 Visit Medications Acetaminophen (Acetaminophen 325 Mg Tablet) 650 mg PO Q6H PRN PRN Reason: Fever >100.4, pain 1-3 Stop: 06/11/25 11:36 Sodium Chloride (Ns) 1,000 mls @ 100 mls/hr IV .Q10H ONE Stop: 05/12/25 16:45 Last Infusion: 05/12/25 06:58 Dose: 0 mls/hr Ondansetron HCl (Ondansetron Inj 2 Mg/Ml Inj 2 Ml) 4 mg IVP Q6H PRN; Protocol PRN Reason: NAUSEA OR VOMITING Stop: 06/11/25 11:36 Pantoprazole Sodium (Pantoprazole Inj 40 Mg Vial) 40 mg IVP BID GIULIANO Stop: 06/11/25 20:59 Discontinued Medications Sodium Chloride (Ns) 1,000 mls @ 999 mls/hr IV .Q1H1M ONE Stop: 05/12/25 07:46 Last Infusion: 05/12/25 08:27 Dose: Infused Piperacillin/Tazobactam/Dextrose (Zosyn) 3.375 gm in 50 mls @ 100 mls/hr IV X1 ONE Stop: 05/12/25 11:05 Last Infusion: 05/12/25 11:31 Dose: Infused Pantoprazole Sodium (Pantoprazole Inj 40 Mg Vial) 80 mg IVP X1 ONE Stop: 05/12/25 11:43 Assessment & Plan Plan Haydee Swartz is a 35F pmhx significant for methamphetamine and marijuana use and supposed liver cirrhosis who presents to [facility] on 05/12 with hematochezia and weakness, admitted for management of GI bleed #GI bleed, upper vs lower #Microcytic anemia Patient presented with hematochezia, reports 3 episodes of dameon both bright and dark blood that began 05/11 associated with lightheadedness. Has not had a bowel movement without blood and has no hx of similar episodes. On admission Hgb 7.4, MCV 77, lactic acid 2.4, with BP 100/69 and HR of 103. In ED, received 1 L NS and pantoprazole 80 mg x 1. Given highest heart rate 105 and lactic acid 2.4, initiated transfusion 1 PRBC at hemoglobin 7.4 due to chance of hemorrhagic shock. Plan: - GI Dr. Garcia consulted for endoscopy and colonoscopy, recs appreciated - 1 pRBC ordered and transfusing - Repeat H&H post transfusion - Start IV pantoprazole 40 mg BID starting tonight - Zofran prn for nausea - Transfuse Hgb <7 #MASLD #Reported cirrhosis Patient reported she has been told that she has cirrhosis, but was unable to follow-up with any physician. On admission AST and ALT within normal limits, and a liver ultrasound showed hepatomegaly with fatty infiltration, no focal liver lesions. Patient denies use of alcohol and ELIZABETH <3. Plan: - Follow up with outpatient PCP to monitor - Consider GLP-1 agonist as early data suggests benefit in MASLD #Methamphetamine Use #Marijuana Use Patient admits to smoking amphetamine and marijuana. UDS on admission positive for both. Denies alcohol use. Plan: - Advise for smoking and drug use cessation - Consider CIWA protocol if symptoms of alcohol withdrawal Hospital management: Lines: peripheral IV Diet: CLD Bowel: Senna GI prophylaxis: pantoprazole DVT prophylaxis: SCDs Disposition: tele for management of GIB CODE STATUS: Full code Plan of care discussed with attending Dr. Nieto, and PGY-2 Dr. Morejon. Mitzi Martinez, DO PGY-1 Internal Medicine Attending Provider Attestation/Addendum I attest that I was physically present for the evaluation, physical examination, lab and imaging review of the patient with the residents. I discussed the case with the residents and agree with the findings and plans of care as documented above. After examination of the patient and review of the clinical data I feel that this patient needs admission to the hospital for further treatment/evaluation. Patient is a 35 years old female with past medical history of methamphetamine abuse who presented to the ED with complaint of bright red blood per rectum. Patient had 1 episode of bloody bowel movement yesterday, she also felt lightheaded and dizzy. Patient denied dark stool, nausea, hematemesis, abdominal pain or urinary symptoms. Patient stated that someone had told her she had cirrhosis but is unclear of the diagnosis and has not followed gastroenterology afterwards. In the ED, heart rate was 103, rest of the vitals were within normal limits. Hemoglobin was 7.4 with MCV of 77, lactic acid was 2.4. Urinalysis was done, negative for pyuria. Urine toxicology was positive for methamphetamine and marijuana although patient denied any use. She also denied alcohol abuse but stated that she uses nicotine vapes. Gastroenterology was contacted by ED. We will admit the patient for management of upper GI bleeding, microcytic anemia likely secondary to blood loss. 1 unit of PRBC has been ordered, we will start her on IV pantoprazole. We will obtain blood transfusion H&H. GI has been consulted, appreciate recommendations. Obtained liver ultrasound, which showed fatty liver but no gallstones, normal CBD, no finding of liver cirrhosis. We will monitor her closely for withdrawal from polysubstance abuse. Leah Nieto MD
[2025-05-12 12:58] LABS: Alcohol, Blood Medical < 3.0 mg/dL (0-10.0)
[2025-05-12 13:53] LABS: Stool for WBCs Negative (Negative)
[2025-05-12 14:20] LABS: Reflex Lactate? Y
[2025-05-12 14:57] LABS: Lactic Acid, 3 HR 1.2 mMol/L (0.4-2.0)
--- NOTE | 2025-05-12 17:29 | PD.IMCONS ---
HPI Data of Consult Requesting Physician: Leah Nieto MD Primary Care Provider: Micha Valverde MD Consult Narrative Reason for consult: Gastrointestinal hemorrhage H/H 7.4/24.5 History of present illness: 35 years old female presented to the hospital with dizziness weakness and at least 3-4 episodes of rectal bleeding dark and bright red she even brought a sample of the stool Her urinary tract screen is positive for methamphetamine and marijuana Ultrasound of the liver done showed normal gallbladder hepatomegaly with fatty infiltration Case was discussed with the internal medicine team patient was going to get 1 unit of PRBCs and subsequently got admitted cc:: cc: Leah Nieto MD Review of Systems Review of Systems Systems Reviewed: All systems reviewed, normal except as documented Past Medical History Surgical History OTHER SURGICAL HX: x 4 Meds Home Medications and Allergies Home Medications ?Medication ?Instructions ?Recorded ?Confirmed ?Type prenat.vits,shawnee,luc-jsiy-zaphw 1 tab PO QDAY 04/11/24 06/25/24 History Allergies Allergy/AdvReac Type Severity Reaction Status Date / Time adhesive tape Allergy Intermediate Rash Verified 05/11/25 22:59 Exam Vital Signs Temp Pulse Resp BP Pulse Ox O2 Del Method 96.4 F L 83 16 105/64 100 Room Air 05/12/25 16:28 05/12/25 16:28 05/12/25 16:28 05/12/25 16:28 05/12/25 16:28 05/12/25 16:00 Constitutional Comments: Chronically ill-appearing Routine Respiratory Exam Comments: Normal to auscultation Routine Abdominal Exam Comments: Positive bowel sounds Results Labs 05/12/25 06:53 05/12/25 00:14 Labs: Short CBC 05/12/25 05/12/25 Range/Units 00:14 06:53 WBC 10.2 10.8 (3.6-11.0) Thou/mm3 Hgb 7.4 L 7.5 L (12.0-16.0) g/dL Hct 24.5 L 24.7 L (36.0-46.0) % Plt Count 420 396 (140-440) Thou/mm3 BMP 05/12/25 00:14 Sodium 141 Potassium 4.5 Chloride 104 Carbon Dioxide 26.3 BUN 24 H Creatinine 0.7 Glucose 102 Calcium 8.8 Cardiac Enzymes 05/12/25 Range/Units 00:14 Troponin I < 0.002 (0.0-0.045) ng/mL Liver Function 05/12/25 Range/Units 00:14 Total Bilirubin 0.4 (0.3-1.2) mg/dL AST 10 (0-34) U/L ALT < 7 L (10-49) U/L Alkaline Phosphatase 89 (46-116) U/L Albumin 4.5 (3.5-5.0) gm/dL Urine 05/12/25 05/12/25 Range/Units 00:00 09:15 Urine Color Lt-Yellow Lt-Yellow (Lt Yel-Yel) Urine Clarity Clear Hazy (Clear/Hazy) Urine pH 6.0 6.0 (5.0-7.0) Ur Specific [place] 1.035 1.034 (1.001-1.035) Urine Protein Trace Trace (Neg - Trace) Urine Glucose (UA) Negative Negative (Negative) Assessment and Plan Additional Assessment & Plan Additional Plan: # Anemia of blood loss in the setting of chronic liver disease secondary to alcohol and methamphetamine use although the LFTs appear to be normal Plan Agree with 1 unit of PRBC Patient could have an upper GI bleed or a lower GI bleed or both Since she brought a stool sample which was bright My recommendation would be to initial colonoscopy Clear liquid diet GoLytely prep Consent obtained for fiberoptic colonoscopy with possible biopsies possible therapeutic intervention under intravenous moderate sedation Advised complete abstinence from alcohol drugs that includes amphetamine and marijuana Will follow the patient We will decide after colonoscopy whether she needs an upper endoscopy prior to discharge Thank you very much for the opportunity to participate in the care of this patient
[2025-05-12] MEDS: NA SU/NAHCO3/KC/PEG (Golytely) 4,000 ML BTL 4000 ML PO (17:54)
--- NOTE | 2025-05-12 19:10 | PC.NURSE ---
RECEIVED PATIENT ALERT AND ORIENTED X3.NO COMPLAINT AT THIS TIME.INSTRUCTED TO CALL WHEN NEEDED ASSISTANCE.
[2025-05-12 20:20] LABS: Hematocrit 24.9 % (36.0-46.0)
[2025-05-12 20:22] LABS: Hemoglobin 7.6 g/dL (12.0-16.0)
[2025-05-13] VITALS (13 sets, daily range): BP systolic 97–123; BP diastolic 60–78; PULSE 64–90; RESP 16–99; TEMP 36–36.8; O2SAT 95–100
[2025-05-13 02:51] LABS: Basophils # (Auto) 0.0 Thou/mm3 (0.0-0.2); Basophils % (Auto) 1 % (0-2.5); Eosinophils # (Auto) 0.2 Thou/mm3 (0.0-0.5); Eosinophils % (Auto) 2 % (0-10); Hematocrit 27.9 % (36.0-46.0); Immature Granulocytes Auto 0.01 Thou/mm3 (0.00-0.00); Lymphocytes # (Auto) 3.9 Thou/mm3 (1.0-4.8); Lymphocytes % (Auto) 54 % (10-50); Mean Corpuscular HGB Conc 31.2 g/dl (31.0-37.0); Mean Corpuscular Hemoglobin 25.7 pg (25.0-35.0); Mean Corpuscular Volume 83 fL (80-100); Monocytes # (Auto) 0.5 Thou/mm3 (0.0-0.8); Monocytes % (Auto) 7 % (0-12); Neutrophils # (Auto) 2.7 Thou/mm3 (1.8-7.7); Neutrophils % (Auto) 37 % (37-80); Nucleated Red Blood Cell # 0.00 Thou/mm3 (0.00-0.00); Nucleated Red Blood Cell % 0 /100 WBC (0); Platelet Count 312 Thou/mm3 (140-440); RDW Standard Deviation 54.3 fL (36.4-46.3); Red Blood Count 3.38 Miln/mm3 (4.00-5.20); White Blood Count 7.3 Thou/mm3 (3.6-11.0)
[2025-05-13 02:54] LABS: Hemoglobin 8.7 g/dL (12.0-16.0)
[2025-05-13 03:52] LABS: Alanine Aminotransferase < 7 U/L (10-49); Albumin, Serum 3.8 gm/dL (3.5-5.0); Albumin/Globulin Ratio 2.1 (1.2-2.2); Alkaline Phosphatase 74 U/L (46-116); Anion Gap 8 (7-16); Aspartate Amino Transferase 10 U/L (0-34); BUN/Creatinine Ratio 15 Ratio (12-20); Bilirubin,Total 1.1 mg/dL (0.3-1.2); Blood Urea Nitrogen 9 mg/dL (9-23); Calcium 8.6 mg/dL (8.3-10.6); Calcium (Corrected) 8.8 mg/dL (8.5-10.1); Carbon Dioxide 27.6 mMol/L (20.0-31.0); Chloride 107 mMol/L (98-107); Creatinine (Component) 0.6 mg/dL (0.6-1.3); Estimated Creatinine Clearance 130.0 mL/min (>60); Globulin 1.8 gm/dL (2.3-3.5); Glucose 94 mg/dL (74-106); Magnesium 2.1 mg/dL (1.6-2.6); Osmolality,Calculated 283 (275-295); Potassium 4.2 mMol/L (3.4-5.1); Sodium 143 mMol/L (136-145); Thyroid Stimulating Hormone 0.91 uIU/mL (0.55-4.78); Total Protein 5.6 gm/dL (5.7-8.2); eGFR > 60 See Note
[2025-05-13 09:53] LABS: OBS Developer Expiration Date 2027-02-28; OBS Performed By singp5; OBS QC OK? Yes
[2025-05-13 09:57] LABS: Occult Blood, Stool Positive (Negative)
--- NOTE | 2025-05-13 10:18 | PC.SS ---
Haydee Swartz is a 35-year-old female admitted to Med Surg for GI workup. SS conducted bedside contact with the patient to complete initial assessment and to discuss discharge planning. Role and reason explained. Patient confirmed demographic information. Patient identifies Yvette Ng [phone] as her surrogate decision maker. Pt states she lives with family and is able to complete all ADL?s independently. No need for any source of DME. Pts PCP is Dr. Valverde, last visit was last year . Pharmacy of choice is [facility]. Discharge options discussed and the pt wishes to return home.? Family will provide transportation upon DC. No further intervention required at this time, social service director would be available to address any further concerns. DC Plan: Home Contact: SisterYvette Address: Confirmed on face sheet PCP: VIRGILIO Valverde
--- NOTE | 2025-05-13 14:50 | ESPR_ITS ---
<Statement entered by Ana Paula Rivera MD - 05/23/25 14:32> I reviewed above note and agree with findings and plans. I have also personally examined the patient with medicine team and went over assessment and plan with medical team including digital intern and resident physician. <Statement entered by Stacey Wilson MD - 05/13/25 17:40> Patient is seen at bedside. Patient is currently undergoing GoLytely prep for colonoscopy that was originally scheduled today however it is postponed for tomorrow as patient is not clear. Patient states she has noticed some bloody stool today. Pt received 2 units of pRBcs , repeat Hgb is 8.7, Hemoglobin is stable we will continue to monitor patient CBC. And plan for a colonoscopy tomorrow. Patient was seen and examined by me personally. I have directly supervised and reviewed documentation by the team resident and agree with its findings with the above exceptions/and additional findings. ------- Plan of care was discussed with the attending, Dr. Miguel Wilson, PGY-2 Documentation for date of: 05/13/25 Subjective Subjective Interval history: Hemoglobin 7.4 on admission. Overnight patient received 1 PRBC on admission, and repeat H&H 7.6. Another 1 unit PRBC transfused, repeat H&H 8.7. Patient seen and examined at bedside. Patient still having bloody bowel movements x 2, had 1 bowel movement of just small stool no blood. Denies urinary symptoms, abdominal pain, chest pain, shortness of breath or dizziness. Patient is scheduled for colonoscopy tomorrow due to not taking adequate GoLytely prep (spilled a large amount) today. Exam Vital Signs Temp Pulse Resp BP Pulse Ox O2 Del Method 97 F 90 16 117/63 96 Room Air 05/13/25 12:00 05/13/25 12:00 05/13/25 12:00 05/13/25 12:00 05/13/25 12:05/13/25 12:00 Narrative Exam GENERAL: AOx3, no acute distress HEENT: NC/AT, mucous membranes moist, bilateral sclera anicteric CARDIOVASCULAR: regular rate and rhythm, S1/S2 present, no murmurs appreciated PULMONARY: clear to auscultation bilaterally, no rales/rhonchi/wheezes ABDOMINAL: soft, non-tender, non-distended, no rebound/guarding, bowel sounds present EXTREMITIES: no peripheral edema SKIN: warm and dry, intact, no rashes NEURO: CN II-XII grossly intact, no focal deficits, alert, following commands Objective Labs 05/13/25 02:15 05/13/25 02:15 Labs: Laboratory Results - last 24 hr 05/12/25 05/12/25 05/12/25 06:53 14:47 19:43 WBC RBC Hgb 7.6 L Hct 24.9 L MCV MCH MCHC RDW Std Deviation Plt Count Neut % (Auto) Lymph % (Auto) [place] % (Auto) Eos % (Auto) Baso % (Auto) Neut # (Auto) Lymph # (Auto) [place] # (Auto) Eos # (Auto) Baso # (Auto) Immature Gran # (Auto) Absolute Nucleated RBC Immature Gran % Nucleated RBC % Sodium Potassium Chloride Carbon Dioxide Anion Gap BUN Creatinine Estim Creat Clear Calc eGFR BUN/Creatinine Ratio Glucose Calculated Osmolality Lactic Acid 1.2 Calcium Corrected Calcium Magnesium Total Bilirubin AST ALT Alkaline Phosphatase Total Protein Albumin Globulin Albumin/Globulin Ratio TSH Stool Occult Blood Blood Type O Negative Antibody Screen NEGATIVE Crossmatch See Detail Blood Bank Wristband ID Yes 05/13/25 05/13/25 02:15 08:28 WBC 7.3 RBC 3.38 L Hgb 8.7 L Hct 27.9 L MCV 83 MCH 25.7 MCHC 31.2 RDW Std Deviation 54.3 H Plt Count 312 D Neut % (Auto) 37 Lymph % (Auto) 54 H [place] % (Auto) 7 Eos % (Auto) 2 Baso % (Auto) 1 Neut # (Auto) 2.7 Lymph # (Auto) 3.9 [place] # (Auto) 0.5 Eos # (Auto) 0.2 Baso # (Auto) 0.0 Immature Gran # (Auto) 0.01 H Absolute Nucleated RBC 0.00 Immature Gran % 0 Nucleated RBC % 0 Sodium 143 Potassium 4.2 Chloride 107 Carbon Dioxide 27.6 Anion Gap 8 BUN 9 Creatinine 0.6 Estim Creat Clear Calc 130.0 eGFR > 60 BUN/Creatinine Ratio 15 Glucose 94 Calculated Osmolality 283 Lactic Acid Calcium 8.6 Corrected Calcium 8.8 Magnesium 2.1 Total Bilirubin 1.1 D AST 10 ALT < 7 L Alkaline Phosphatase 74 Total Protein 5.6 L Albumin 3.8 D Globulin 1.8 L Albumin/Globulin Ratio 2.1 TSH 0.91 Stool Occult Blood Positive A Blood Type Antibody Screen Crossmatch Blood Bank Wristband ID Quality Measures Quality Measures VTE prophylaxis Assessment & Plan Assessment Current Active Medications: Generic Name Dose Route Start Last Admin Trade Name Nam PRN Reason Stop Dose Admin Acetaminophen 650 mg 05/12/25 11:37 Acetaminophen 325 Mg Tablet PO 06/11/25 11:36 Q6H PRN Fever >100.4, pain 1-3 Ondansetron HCl 4 mg 05/12/25 11:37 Ondansetron Inj 2 Mg/Ml Inj 2 Ml IVP 06/11/25 11:36 Q6H PRN NAUSEA OR VOMITING Protocol Pantoprazole Sodium 40 mg 05/12/25 21:00 05/13/25 08:13 Pantoprazole Inj 40 Mg Vial IVP 06/11/25 20:59 40 mg BID GIULIANO Administration Plan Haydee Swartz is a 35F pmhx significant for methamphetamine and marijuana use and supposed liver cirrhosis who presents to [facility] on 05/12 with hematochezia and weakness, admitted for management of GI bleed #GI bleed, upper vs lower #Microcytic anemia Patient presented with hematochezia, reports 3 episodes of dameon both bright and dark blood that began 05/11 associated with lightheadedness. Has not had a bowel movement without blood and has no hx of similar episodes. On admission Hgb 7.4, MCV 77, lactic acid 2.4, with BP 100/69 and HR of 103. In ED, received 1 L NS and pantoprazole 80 mg x 1. Given highest heart rate 105 and lactic acid 2.4, initiated transfusion at hemoglobin 7.4 due to chance of hemorrhagic shock. s/p 2 units pRBC Plan: - GI Dr. Garcia consulted - Colonoscopy planned for tomorrow, reassess for EGD post colonoscopy - IV pantoprazole 40 mg BID - Zofran prn for nausea - CTM CBC - Transfuse Hgb <7 #MASLD Patient reported she has been told that she has cirrhosis, but does not have. On admission AST and ALT within normal limits, and a liver ultrasound showed hepatomegaly with fatty infiltration, no focal liver lesions. Patient denies use of alcohol and ELIZABETH <3. Endorses recent tattoos in unclean environments and infidelity of ex-boyfriend. Plan: - F/u hep panel and HIV - Follow up with outpatient PCP to monitor - Consider GLP-1 agonist as early data suggests benefit in MASLD #Methamphetamine Use #Marijuana Use Patient admits to smoking amphetamine and marijuana. UDS on admission positive for both. Denies alcohol use. Plan: - Advise for smoking and drug use cessation - Consider CIWA protocol if symptoms of alcohol withdrawal Hospital management: Lines: peripheral IV Diet: CLD Bowel: Senna GI prophylaxis: pantoprazole DVT prophylaxis: SCDs Disposition: tele for management of GIB CODE STATUS: Full code Plan of care discussed with attending Dr. Rivera, and PGY-2 Dr. Wilson. Mitzi Martinez, DO PGY-1 Internal Medicine
[2025-05-13] MEDS: NA SU/NAHCO3/KC/PEG (Golytely) 4,000 ML BTL 4000 ML PO (15:57)
--- NOTE | 2025-05-13 16:41 | PD.IMPROG ---
Documentation for date of: 05/13/25 Subjective Subjective Interval history: Patient evaluated hemoglobin hematocrit 8.7 and 27.9 Patient was scheduled for a colonoscopy today but she is not clear additional GoLytely and colonoscopy scheduled for tomorrow Exam Vital Signs Temp Pulse Resp BP Pulse Ox O2 Del Method 97 F 90 16 117/63 96 Room Air 05/13/25 12:00 05/13/25 12:00 05/13/25 12:00 05/13/25 12:00 05/13/25 12:00 05/13/25 12:00 Objective Labs 05/13/25 02:15 05/13/25 02:15 Labs: Laboratory Results - last 24 hr 05/12/25 05/12/25 05/13/25 06:53 19:43 02:15 WBC 7.3 RBC 3.38 L Hgb 7.6 L 8.7 L Hct 24.9 L 27.9 L MCV 83 MCH 25.7 MCHC 31.2 RDW Std Deviation 54.3 H Plt Count 312 D Neut % (Auto) 37 Lymph % (Auto) 54 H [place] % (Auto) 7 Eos % (Auto) 2 Baso % (Auto) 1 Neut # (Auto) 2.7 Lymph # (Auto) 3.9 [place] # (Auto) 0.5 Eos # (Auto) 0.2 Baso # (Auto) 0.0 Immature Gran # (Auto) 0.01 H Absolute Nucleated RBC 0.00 Immature Gran % 0 Nucleated RBC % 0 Sodium 143 Potassium 4.2 Chloride 107 Carbon Dioxide 27.6 Anion Gap 8 BUN 9 Creatinine 0.6 Estim Creat Clear Calc 130.0 eGFR > 60 BUN/Creatinine Ratio 15 Glucose 94 Calculated Osmolality 283 Calcium 8.6 Corrected Calcium 8.8 Magnesium 2.1 Total Bilirubin 1.1 D AST 10 ALT < 7 L Alkaline Phosphatase 74 Total Protein 5.6 L Albumin 3.8 D Globulin 1.8 L Albumin/Globulin Ratio 2.1 TSH 0.91 Stool Occult Blood Blood Type O Negative Antibody Screen NEGATIVE Crossmatch See Detail Blood Bank Wristband ID Yes 05/13/25 08:28 WBC RBC Hgb Hct MCV MCH MCHC RDW Std Deviation Plt Count Neut % (Auto) Lymph % (Auto) [place] % (Auto) Eos % (Auto) Baso % (Auto) Neut # (Auto) Lymph # (Auto) [place] # (Auto) Eos # (Auto) Baso # (Auto) Immature Gran # (Auto) Absolute Nucleated RBC Immature Gran % Nucleated RBC % Sodium Potassium Chloride Carbon Dioxide Anion Gap BUN Creatinine Estim Creat Clear Calc eGFR BUN/Creatinine Ratio Glucose Calculated Osmolality Calcium Corrected Calcium Magnesium Total Bilirubin AST ALT Alkaline Phosphatase Total Protein Albumin Globulin Albumin/Globulin Ratio TSH Stool Occult Blood Positive A Blood Type Antibody Screen Crossmatch Blood Bank Wristband ID Impressions Impression: Anemia of blood loss Colonoscopy rescheduled for tomorrow as she was not clear today Additional GoLytely Assessment & Plan A&P Narrative # Anemia of blood loss in the setting of chronic liver disease secondary to alcohol and methamphetamine use although the LFTs appear to be normal Plan Agree with 1 unit of PRBC Patient could have an upper GI bleed or a lower GI bleed or both Since she brought a stool sample which was bright My recommendation would be to initial colonoscopy Clear liquid diet GoLytely prep Consent obtained for fiberoptic colonoscopy with possible biopsies possible therapeutic intervention under intravenous moderate sedation Advised complete abstinence from alcohol drugs that includes amphetamine and marijuana Will follow the patient We will decide after colonoscopy whether she needs an upper endoscopy prior to discharge Thank you very much for the opportunity to participate in the care of this patient Time Spent With Patient Time: Total time spent is greater than 50% in coordination of care (as documented) at patient's floor/unit and/or counseling patient:
[2025-05-13 17:12] LABS: HIV (1&2) Antibody Rapid Non-Reactive
[2025-05-14] VITALS (19 sets, daily range): BP systolic 97–110; BP diastolic 55–76; PULSE 60–88; RESP 12–95; TEMP 36.1–36.5; O2SAT 93–100
[2025-05-14 06:27] LABS: Basophils # (Auto) 0.0 Thou/mm3 (0.0-0.2); Basophils % (Auto) 0 % (0-2.5); Eosinophils # (Auto) 0.2 Thou/mm3 (0.0-0.5); Eosinophils % (Auto) 3 % (0-10); Hematocrit 26.6 % (36.0-46.0); Immature Granulocytes Auto 0.02 Thou/mm3 (0.00-0.00); Lymphocytes # (Auto) 2.9 Thou/mm3 (1.0-4.8); Lymphocytes % (Auto) 42 % (10-50); Mean Corpuscular HGB Conc 31.6 g/dl (31.0-37.0); Mean Corpuscular Hemoglobin 25.9 pg (25.0-35.0); Mean Corpuscular Volume 82 fL (80-100); Monocytes # (Auto) 0.5 Thou/mm3 (0.0-0.8); Monocytes % (Auto) 7 % (0-12); Neutrophils # (Auto) 3.3 Thou/mm3 (1.8-7.7); Neutrophils % (Auto) 47 % (37-80); Nucleated Red Blood Cell # 0.00 Thou/mm3 (0.00-0.00); Nucleated Red Blood Cell % 0 /100 WBC (0); Platelet Count 343 Thou/mm3 (140-440); RDW Standard Deviation 55.7 fL (36.4-46.3); Red Blood Count 3.24 Miln/mm3 (4.00-5.20); White Blood Count 7.0 Thou/mm3 (3.6-11.0)
[2025-05-14 06:43] LABS: Hemoglobin 8.4 g/dL (12.0-16.0)
[2025-05-14 06:51] LABS: Hepatitis A Antibody IgM Non Reactive (Non React); Hepatitis B Core Antibody IgM Non Reactive (Non React); Hepatitis B Surface Antigen Non Reactive (Non React); Hepatitis C Antibody Non Reactive (Non React)
[2025-05-14 06:52] LABS: Alanine Aminotransferase < 7 U/L (10-49); Albumin, Serum 3.9 gm/dL (3.5-5.0); Albumin/Globulin Ratio 2.1 (1.2-2.2); Alkaline Phosphatase 77 U/L (46-116); Anion Gap 8 (7-16); Aspartate Amino Transferase 10 U/L (0-34); BUN/Creatinine Ratio 8 Ratio (12-20); Bilirubin,Total 0.5 mg/dL (0.3-1.2); Blood Urea Nitrogen < 5 mg/dL (9-23); Calcium 9.2 mg/dL (8.3-10.6); Calcium (Corrected) 9.3 mg/dL (8.5-10.1); Carbon Dioxide 30.0 mMol/L (20.0-31.0); Chloride 108 mMol/L (98-107); Creatinine (Component) 0.6 mg/dL (0.6-1.3); Estimated Creatinine Clearance 126.7 mL/min (>60); Globulin 1.9 gm/dL (2.3-3.5); Glucose 100 mg/dL (74-106); Magnesium 2.2 mg/dL (1.6-2.6); Osmolality,Calculated 287 (275-295); Potassium 4.1 mMol/L (3.4-5.1); Sodium 146 mMol/L (136-145); Total Protein 5.8 gm/dL (5.7-8.2); eGFR > 60 See Note
--- NOTE | 2025-05-14 09:03 | PC.SS ---
Follow up note: Colonoscopy is pending. Pt will return home upon dc.
--- NOTE | 2025-05-14 10:08 | ESPR_ITS ---
<Statement entered by Ana Paula Rivera MD - 05/23/25 14:33> I reviewed above note and agree with findings and plans. I have also personally examined the patient with medicine team and went over assessment and plan with medical team including international recruiter and resident physician. <Statement entered by Marc Morejon MD - 05/14/25 17:11> Patient was seen and examined at bedside. I agree on the assessment and plan on this note as documented by resident Barbara Benton PGY1. Patient is undergoing GoLytely prep today, pending colonoscopy. Bowel movements overnight not completely clear, will continue protonix 40mg IV BID. Denies any abdominal pain and significant distress, will continue with GoLytely prep today, does have underlying NAFLD. Gastroenterology is following, disposition med/tele pending colonoscopy. Case discussed with attending Dr. Miguel Morejon MD PGY-2 Documentation for date of: 05/14/25 Subjective Subjective Interval history: A 35 year old female w/ PMHx of MASLD, gestational DM, methamphetamine and marijuana, presented to ED with hematochezia, weakness, dizziness with no loss of consciousness, admitted for GI bleed management. Overnight, there was no acute events. Patient did not finish Golytely prep, therefore colonoscopy was postpone for today. Vitals were stable. H/H improving, Hg=8.7 and Hct= 27.9L. Had 1 watery non-bloody bowel movement. Today, patient was examined and seen by bedside. No active complains. Was eating clear-liquid diet breakfast and drinking Golytely. Denies SOB, weakness, abdominal and rectal pain, urinary symptoms. Patient is scheduled for colonoscopy today . Exam Vital Signs Temp Pulse Resp BP Pulse Ox O2 Del Method 97.4 F 82 18 102/55 L 95 Room Air 05/14/25 08:00 05/14/25 08:00 05/14/25 08:00 05/14/25 08:00 05/14/25 08:00 05/14/25 08:00 Constitutional Constitutional: no acute distress Routine Neck Exam Neck: Present supple and full ROM Routine Respiratory Exam Respiratory: Present chest non-tender, lungs clear, normal breath sounds and no resp distress Routine Cardiovascular Exam Cardiovascular: Present RRR, S1 and S2 Routine Abdominal Exam Abdominal: Present soft and normoactive bowel sounds Routine Skin Exam Skin: Present intact Routine Neurological Exam Neurological: Present alert, oriented X3 and normal reflexes Objective Labs 05/15/25 13:43 05/15/25 05:29 Labs: Laboratory Results - last 24 hr 05/13/25 05/14/25 15:17 05:45 WBC 7.0 RBC 3.24 L Hgb 8.4 L Hct 26.6 L MCV 82 MCH 25.9 MCHC 31.6 RDW Std Deviation 55.7 H Plt Count 343 D Neut % (Auto) 47 Lymph % (Auto) 42 [place] % (Auto) 7 Eos % (Auto) 3 Baso % (Auto) 0 Neut # (Auto) 3.3 Lymph # (Auto) 2.9 [place] # (Auto) 0.5 Eos # (Auto) 0.2 Baso # (Auto) 0.0 Immature Gran # (Auto) 0.02 H Absolute Nucleated RBC 0.00 Immature Gran % 0 Nucleated RBC % 0 Sodium 146 H Potassium 4.1 Chloride 108 H Carbon Dioxide 30.0 Anion Gap 8 BUN < 5 L Creatinine 0.6 Estim Creat Clear Calc 126.7 eGFR > 60 BUN/Creatinine Ratio 8 L Glucose 100 Calculated Osmolality 287 Calcium 9.2 Corrected Calcium 9.3 Magnesium 2.2 Total Bilirubin 0.5 D AST 10 ALT < 7 L Alkaline Phosphatase 77 Total Protein 5.8 Albumin 3.9 Globulin 1.9 L Albumin/Globulin Ratio 2.1 Hepatitis A IgM Ab Non Reactive Hep Bs Antigen Non Reactive Hep B Core IgM Ab Non Reactive Hepatitis C Antibody Non Reactive HIV 1&2 Antibody Rapid Non-Reactive Quality Measures Quality Measures VTE prophylaxis Assessment & Plan Assessment Current Active Medications: Generic Name Dose Route Start Last Admin Trade Name Nam PRN Reason Stop Dose Admin Acetaminophen 650 mg 05/12/25 11:37 Acetaminophen 325 Mg Tablet PO 06/11/25 11:36 Q6H PRN Fever >100.4, pain 1-3 Ondansetron HCl 4 mg 05/12/25 11:37 Ondansetron Inj 2 Mg/Ml Inj 2 Ml IVP 06/11/25 11:36 Q6H PRN NAUSEA OR VOMITING Protocol Pantoprazole Sodium 40 mg 05/12/25 21:00 05/14/25 09:36 Pantoprazole Inj 40 Mg Vial IVP 06/11/25 20:59 40 mg BID [facility] Administration Plan 35 year old female w/ PMHx of MASLD, gestational DM, methamphetamine and marijuana, presented to ED with hematochezia, weakness, dizziness with no loss of consciousness, admitted for GI bleed management. #GI bleed, UGIB VS LGIB #Microcytic anemia- improving Patient presented with hematochezia, reports 3 episodes of dameon both bright and dark blood that began 05/11 associated with lightheadedness. Has not had a bowel movement without blood and has no hx of similar episodes. On admission Hgb 7.4, MCV 77, lactic acid 2.4, with BP 100/69 and HR of 103. In ED, received 1 L NS and pantoprazole 80 mg x 1. Given highest heart rate 105 and lactic acid 2.4, initiated transfusion at hemoglobin 7.4 due to chance of hemorrhagic shock. s/p 2 units pRBC Plan - Colonoscopy planned for today, per Dr. Garcia consult - Continue IV pantoprazole 40 g milligram twice daily - Continue to monitor CBC #MASLD Patient reported she has been told that she has cirrhosis, but does not have. On admission AST and ALT within normal limits, and a liver ultrasound showed hepatomegaly with fatty infiltration, no focal liver lesions. Patient denies use of alcohol and ELIZABETH <3. Endorses recent tattoos in unclean environments and infidelity of ex-boyfriend. Plan - F/U with outpatient PCP to monitor - Hep panel and HIV result is non-reactive - Consider GLP-1 agonist as early data suggests benefit in MASLD #Methamphetamine use # Marijuana Use Plan - Counseled the patient on the benefit of drug use cessation - Consider CIWA protocol if symptoms of alcohol withdrawal Hospital management: Lines: peripheral IV Diet: Clear liquid diet Bowel: Golytely GI prophylaxis: pantoprazole DVT prophylaxis: SCDs Disposition: med-tele for management of GIB CODE STATUS: Full code Patient seen and assessed under supervision of attending physician Dr. Rivera and discuss with senior resident Dr. Morejon PGY-2 Barbara Benton MD PGY-1, Internal Medicine
--- NOTE | 2025-05-14 14:31 | PD.IMPROG ---
Documentation for date of: 05/14/25 Subjective Subjective Interval history: Patient evaluated She is still not clear Continue GoLytely Procedure postponed to tomorrow Exam Vital Signs Temp Pulse Resp BP Pulse Ox O2 Del Method 97.3 F 67 17 106/67 93 L Room Air 05/14/25 12:00 05/14/25 12:00 05/14/25 12:00 05/14/25 12:00 05/14/25 12:00 05/14/25 12:00 Objective Labs 05/14/25 05:45 05/14/25 05:45 Labs: Laboratory Results - last 24 hr 05/13/25 05/14/25 15:17 05:45 WBC 7.0 RBC 3.24 L Hgb 8.4 L Hct 26.6 L MCV 82 MCH 25.9 MCHC 31.6 RDW Std Deviation 55.7 H Plt Count 343 D Neut % (Auto) 47 Lymph % (Auto) 42 [place] % (Auto) 7 Eos % (Auto) 3 Baso % (Auto) 0 Neut # (Auto) 3.3 Lymph # (Auto) 2.9 [facility] # (Auto) 0.5 Eos # (Auto) 0.2 Baso # (Auto) 0.0 Immature Gran # (Auto) 0.02 H Absolute Nucleated RBC 0.00 Immature Gran % 0 Nucleated RBC % 0 Sodium 146 H Potassium 4.1 Chloride 108 H Carbon Dioxide 30.0 Anion Gap 8 BUN < 5 L Creatinine 0.6 Estim Creat Clear Calc 126.7 eGFR > 60 BUN/Creatinine Ratio 8 L Glucose 100 Calculated Osmolality 287 Calcium 9.2 Corrected Calcium 9.3 Magnesium 2.2 Total Bilirubin 0.5 D AST 10 ALT < 7 L Alkaline Phosphatase 77 Total Protein 5.8 Albumin 3.9 Globulin 1.9 L Albumin/Globulin Ratio 2.1 Hepatitis A IgM Ab Non Reactive Hep Bs Antigen Non Reactive Hep B Core IgM Ab Non Reactive Hepatitis C Antibody Non Reactive HIV 1&2 Antibody Rapid Non-Reactive Impressions Impression: # GI bleed Patient is scheduled for a colonoscopy however she is not clear colonoscopy postponed to tomorrow Clear liquid diet till 10 AM then n.p.o. Assessment & Plan A&P Narrative # Anemia of blood loss in the setting of chronic liver disease secondary to alcohol and methamphetamine use although the LFTs appear to be normal Plan Agree with 1 unit of PRBC Patient could have an upper GI bleed or a lower GI bleed or both Since she brought a stool sample which was bright My recommendation would be to initial colonoscopy Clear liquid diet GoLytely prep Consent obtained for fiberoptic colonoscopy with possible biopsies possible therapeutic intervention under intravenous moderate sedation Advised complete abstinence from alcohol drugs that includes amphetamine and marijuana Will follow the patient We will decide after colonoscopy whether she needs an upper endoscopy prior to discharge Thank you very much for the opportunity to participate in the care of this patient Time Spent With Patient Time: Total time spent is greater than 50% in coordination of care (as documented) at patient's floor/unit and/or counseling patient:
--- NOTE | 2025-05-14 17:16 | SUR.PHASEI ---
pt received from OR in recovery bay 5. pt asleep but responds to voice, breathing unlabored on nc 2l. v/s stable. report received from Matty MARCUM.
--- NOTE | 2025-05-14 18:08 | SUR.PHASEI ---
pt asleep but responds to voice, breathing unlabored on room air. v/s stable. report called to Eve Lujan. pt will be transferred to room at this time.
[2025-05-15] VITALS (20 sets, daily range): BP systolic 83–118; BP diastolic 50–73; PULSE 65–90; RESP 12–19; TEMP 36.2–37; O2SAT 95–100; BMI 26.8
[2025-05-15 06:03] LABS: Basophils # (Auto) 0.0 Thou/mm3 (0.0-0.2); Basophils % (Auto) 0 % (0-2.5); Eosinophils # (Auto) 0.3 Thou/mm3 (0.0-0.5); Eosinophils % (Auto) 4 % (0-10); Hematocrit 25.4 % (36.0-46.0); Immature Granulocytes Auto 0.01 Thou/mm3 (0.00-0.00); Lymphocytes # (Auto) 3.2 Thou/mm3 (1.0-4.8); Lymphocytes % (Auto) 42 % (10-50); Mean Corpuscular HGB Conc 30.3 g/dl (31.0-37.0); Mean Corpuscular Hemoglobin 25.2 pg (25.0-35.0); Mean Corpuscular Volume 83 fL (80-100); Monocytes # (Auto) 0.5 Thou/mm3 (0.0-0.8); Monocytes % (Auto) 7 % (0-12); Neutrophils # (Auto) 3.6 Thou/mm3 (1.8-7.7); Neutrophils % (Auto) 47 % (37-80); Nucleated Red Blood Cell # 0.00 Thou/mm3 (0.00-0.00); Nucleated Red Blood Cell % 0 /100 WBC (0); Platelet Count 329 Thou/mm3 (140-440); RDW Standard Deviation 57.4 fL (36.4-46.3); Red Blood Count 3.05 Miln/mm3 (4.00-5.20); White Blood Count 7.6 Thou/mm3 (3.6-11.0)
[2025-05-15 06:26] LABS: Hemoglobin 7.7 g/dL (12.0-16.0)
[2025-05-15 06:35] LABS: Alanine Aminotransferase < 7 U/L (10-49); Albumin, Serum 3.6 gm/dL (3.5-5.0); Albumin/Globulin Ratio 2.1 (1.2-2.2); Alkaline Phosphatase 75 U/L (46-116); Anion Gap 9 (7-16); Aspartate Amino Transferase 10 U/L (0-34); BUN/Creatinine Ratio 12 Ratio (12-20); Bilirubin,Total 0.4 mg/dL (0.3-1.2); Blood Urea Nitrogen 7 mg/dL (9-23); Calcium 8.3 mg/dL (8.3-10.6); Calcium (Corrected) 8.6 mg/dL (8.5-10.1); Carbon Dioxide 27.3 mMol/L (20.0-31.0); Chloride 107 mMol/L (98-107); Creatinine (Component) 0.6 mg/dL (0.6-1.3); Estimated Creatinine Clearance 126.7 mL/min (>60); Globulin 1.7 gm/dL (2.3-3.5); Glucose 105 mg/dL (74-106); Magnesium 1.7 mg/dL (1.6-2.6); Osmolality,Calculated 282 (275-295); Potassium 4.2 mMol/L (3.4-5.1); Sodium 143 mMol/L (136-145); Total Protein 5.3 gm/dL (5.7-8.2); eGFR > 60 See Note
[2025-05-15 13:52] LABS: Hematocrit 27.5 % (36.0-46.0)
[2025-05-15 14:08] LABS: Hemoglobin 8.4 g/dL (12.0-16.0)
--- NOTE | 2025-05-15 16:20 | ESPR_ITS ---
<Statement entered by Marc Morejon MD - 05/16/25 17:13> Patient was seen and examined at bedside. I agree on the assessment and plan on this note as documented by resident Barbara Benton PGY1. No overnight events, patient seen at bedside, pending EGD which is scheduled for today, will continue with Protonix 40 twice daily. Does have underlying NAFLD, patient advised to follow-up outpatient with primary care physician, recommend GLP-1 agonists if indicated. Patient advised to refrain from methamphetamine and marijuana use. Disposition telemetry, pending EGD. Case discussed with attending Dr. Gerson Morejon MD PGY-2 Documentation for date of: 05/15/25 Subjective Subjective Interval history: 35-year-old female by medical history of MASLD, gestational diabetes, methamphetamine and marijuana, presented to ED with hematochezia, weakness, dizziness with no loss of consciousness, admitted for GI bleed management. Overnight, there were no acute events. Colonoscopy was done on 05/14/25. Vitals were stable. The patient was seen and examined at the bedside. She has no active complaint. Labs are reviewed. Hgb 7.7 and Hct 25.4 H&H is on the lower end but stable. Per GI, EGD planned for today. Exam Vital Signs Temp Pulse Resp BP Pulse Ox O2 Del Method O2 Flow Rate 97.6 F 67 17 105/73 95 Room Air 2 05/15/25 12:00 05/15/25 12:00 05/15/25 12:00 05/15/25 12:00 05/15/25 12:00 05/15/25 12:00 05/14/25 17:30 Narrative Exam Physical Exam: General: Alert, no acute distress. Skin: Warm, dry, intact, no obvious rash. Head: Normocephalic, atraumatic. Eye: Normal conjunctiva, PERRL. Cardiovascular: Regular rate and rhythm, no murmur, +S1/S2. Respiratory: Lungs are clear to auscultation, respirations unlabored, no crackles, no wheezing. Gastrointestinal: Soft, nontender, non-distended. No guarding or rebound tenderness. Extremities: No edema, no cyanosis, no clubbing. 2+ radial pulse bilaterally, 2+ pedal pulse bilaterally. Neuro: No focal deficits observed. Conversant, moving all extremities. No overt cerebellar signs/incoordination. Psychiatric: Cooperative, appropriate affect. Objective Labs 05/16/25 05:22 05/16/25 05:22 Labs: Laboratory Results - last 24 hr 05/15/25 05/15/25 05:29 13:43 WBC 7.6 RBC 3.05 L Hgb 7.7 L 8.4 L Hct 25.4 L 27.5 L MCV 83 MCH 25.2 MCHC 30.3 L RDW Std Deviation 57.4 H Plt Count 329 Neut % (Auto) 47 Lymph % (Auto) 42 [place] % (Auto) 7 Eos % (Auto) 4 Baso % (Auto) 0 Neut # (Auto) 3.6 Lymph # (Auto) 3.2 [place] # (Auto) 0.5 Eos # (Auto) 0.3 Baso # (Auto) 0.0 Immature Gran # (Auto) 0.01 H Absolute Nucleated RBC 0.00 Immature Gran % 0 Nucleated RBC % 0 Sodium 143 Potassium 4.2 Chloride 107 Carbon Dioxide 27.3 Anion Gap 9 BUN 7 L Creatinine 0.6 Estim Creat Clear Calc 126.7 eGFR > 60 BUN/Creatinine Ratio 12 Glucose 105 Calculated Osmolality 282 Calcium 8.3 Corrected Calcium 8.6 Magnesium 1.7 Total Bilirubin 0.4 AST 10 ALT < 7 L Alkaline Phosphatase 75 Total Protein 5.3 L Albumin 3.6 Globulin 1.7 L Albumin/Globulin Ratio 2.1 Quality Measures Quality Measures VTE prophylaxis Assessment & Plan Assessment Current Active Medications: Generic Name Dose Route Start Last Admin Trade Name Freq PRN Reason Stop Dose Admin Acetaminophen 650 mg 05/12/25 11:37 Acetaminophen 325 Mg Tablet PO 06/11/25 11:36 Q6H PRN Fever >100.4, pain 1-3 Ondansetron HCl 4 mg 05/12/25 11:37 Ondansetron Inj 2 Mg/Ml Inj 2 Ml IVP 06/11/25 11:36 Q6H PRN NAUSEA OR VOMITING Protocol Pantoprazole Sodium 40 mg 05/12/25 21:00 05/15/25 08:59 Pantoprazole Inj 40 Mg Vial IVP 06/11/25 20:59 40 mg BID GIULIANO Administration Plan 35 year old female w/ PMHx of MASLD, gestational DM, methamphetamine and marijuana, presented to ED with hematochezia, weakness, dizziness with no loss of consciousness, admitted for GI bleed management. #GI bleed, UGIB VS LGIB #Microcytic anemia- improving Patient presented with hematochezia, reports 3 episodes of dameon both bright and dark blood that began 05/11 associated with lightheadedness. Has not had a bowel movement without blood and has no hx of similar episodes. On admission Hgb 7.4, MCV 77, lactic acid 2.4, with BP 100/69 and HR of 103. In ED, received 1 L NS and pantoprazole 80 mg x 1. Given highest heart rate 105 and lactic acid 2.4, initiated transfusion at hemoglobin 7.4 due to chance of hemorrhagic shock. Colonoscopy findings- hemorrhoids were found on perianal area, the colon appeared normal. s/p 2 units pRBC Plan - EGD planned for today, per Dr. Garcia consult - Continue IV pantoprazole 40 g milligram twice daily - Continue to monitor CBC - Repeat H&H ordered #MASLD Patient reported she has been told that she has cirrhosis, but does not have. On admission AST and ALT within normal limits, and a liver ultrasound showed hepatomegaly with fatty infiltration, no focal liver lesions. Patient denies use of alcohol and ELIZABETH <3. Endorses recent tattoos in unclean environments and infidelity of ex-boyfriend. Plan - F/U with outpatient PCP to monitor - Hep panel and HIV result is non-reactive - Consider GLP-1 agonist as early data suggests benefit in MASLD #Methamphetamine use # Marijuana Use Plan - Counseled the patient on the benefit of drug use cessation - Consider CIWA protocol if symptoms of alcohol withdrawal Hospital management: Lines: peripheral IV Diet: CLD GI prophylaxis: pantoprazole DVT prophylaxis: SCDs Disposition: tele, pending EGD CODE STATUS: Full code Patient seen and assessed under supervision of attending physician Dr. iNeto and discuss with senior resident Dr. Morejon PGY-2 Barbara Benton MD PGY-1, Internal Medicine Attending Provider Attestation/Addendum I attest that I was physically present for the evaluation, physical examination, lab and imaging review of the patient with the residents. I discussed the case with the residents and agree with the findings and plans of care as documented above. Leah Nieto MD
--- NOTE | 2025-05-15 18:05 | SUR.PHASEI ---
[id number] Patient arrived to recovery resting comfortably in [facility], drowsy and able to respond to verbal prompting, on oxygen 3L via nasal cannula, breathing unlabored, vital signs stable, denies pain and nausea, report Samantha MARCUM
--- NOTE | 2025-05-15 18:35 | SUR.PHASEI ---
1832 Report given to Eve MARCUM, patient meets discharge criteria from recovery, awake and alert, breathing unlabored, vital signs stable, denies pain, drinking water; tolerating well, denies nausea. 1835 Patient transported via gurney to room 350 without incident.
[2025-05-16] VITALS: BP 91/62; PULSE 100; RESP 18; TEMP 36.2; O2SAT 100
[2025-05-16 00:28] VITALS: PULSE 91
[2025-05-16 04:00] VITALS: BP 95/56; PULSE 77; RESP 15; TEMP 36.3; O2SAT 95
[2025-05-16 04:26] VITALS: PULSE 75
[2025-05-16 06:06] LABS: Basophils # (Auto) 0.0 Thou/mm3 (0.0-0.2); Basophils % (Auto) 0 % (0-2.5); Eosinophils # (Auto) 0.3 Thou/mm3 (0.0-0.5); Eosinophils % (Auto) 4 % (0-10); Hematocrit 26.9 % (36.0-46.0); Immature Granulocytes Auto 0.02 Thou/mm3 (0.00-0.00); Lymphocytes # (Auto) 2.5 Thou/mm3 (1.0-4.8); Lymphocytes % (Auto) 36 % (10-50); Mean Corpuscular HGB Conc 30.9 g/dl (31.0-37.0); Mean Corpuscular Hemoglobin 25.4 pg (25.0-35.0); Mean Corpuscular Volume 82 fL (80-100); Monocytes # (Auto) 0.5 Thou/mm3 (0.0-0.8); Monocytes % (Auto) 7 % (0-12); Neutrophils # (Auto) 3.6 Thou/mm3 (1.8-7.7); Neutrophils % (Auto) 52 % (37-80); Nucleated Red Blood Cell # 0.00 Thou/mm3 (0.00-0.00); Nucleated Red Blood Cell % 0 /100 WBC (0); Platelet Count 405 Thou/mm3 (140-440); RDW Standard Deviation 55.9 fL (36.4-46.3); Red Blood Count 3.27 Miln/mm3 (4.00-5.20); White Blood Count 6.8 Thou/mm3 (3.6-11.0)
[2025-05-16 06:10] LABS: Hemoglobin 8.3 g/dL (12.0-16.0)
[2025-05-16 06:54] LABS: Alanine Aminotransferase < 7 U/L (10-49); Albumin, Serum 3.9 gm/dL (3.5-5.0); Albumin/Globulin Ratio 2.1 (1.2-2.2); Alkaline Phosphatase 84 U/L (46-116); Anion Gap 7 (7-16); Aspartate Amino Transferase 10 U/L (0-34); BUN/Creatinine Ratio 12 Ratio (12-20); Bilirubin,Total 0.3 mg/dL (0.3-1.2); Blood Urea Nitrogen 7 mg/dL (9-23); Calcium 8.6 mg/dL (8.3-10.6); Calcium (Corrected) 8.7 mg/dL (8.5-10.1); Carbon Dioxide 30.1 mMol/L (20.0-31.0); Chloride 106 mMol/L (98-107); Creatinine (Component) 0.6 mg/dL (0.6-1.3); Estimated Creatinine Clearance 126.7 mL/min (>60); Globulin 1.9 gm/dL (2.3-3.5); Glucose 103 mg/dL (74-106); Osmolality,Calculated 282 (275-295); Potassium 4.5 mMol/L (3.4-5.1); Sodium 143 mMol/L (136-145); Total Protein 5.8 gm/dL (5.7-8.2); eGFR > 60 See Note
[2025-05-16 08:00] VITALS: BP 106/59; PULSE 71; PULSE 82; RESP 18; TEMP 36.3; O2SAT 95
[2025-05-16 12:00] VITALS: BP 98/55; PULSE 85; RESP 18; TEMP 36.2; O2SAT 97
--- NOTE | 2025-05-16 12:24 | PD.IMPROG ---
Documentation for date of: 05/16/25 Exam Vital Signs Temp Pulse Resp BP Pulse Ox O2 Del Method O2 Flow Rate 97.1 F 85 18 98/55 L 97 Room Air 1 05/16/25 12:00 05/16/25 12:00 05/16/25 12:00 05/16/25 12:00 05/16/25 12:00 05/16/25 12:00 05/15/25 18:20 Objective Labs 05/16/25 05:22 05/16/25 05:22 Labs: Laboratory Results - last 24 hr 05/15/25 05/16/25 13:43 05:22 WBC 6.8 RBC 3.27 L Hgb 8.4 L 8.3 L Hct 27.5 L 26.9 L MCV 82 MCH 25.4 MCHC 30.9 L RDW Std Deviation 55.9 H Plt Count 405 D Neut % (Auto) 52 Lymph % (Auto) 36 [place] % (Auto) 7 Eos % (Auto) 4 Baso % (Auto) 0 Neut # (Auto) 3.6 Lymph # (Auto) 2.5 [place] # (Auto) 0.5 Eos # (Auto) 0.3 Baso # (Auto) 0.0 Immature Gran # (Auto) 0.02 H Absolute Nucleated RBC 0.00 Immature Gran % 0 Nucleated RBC % 0 Sodium 143 Potassium 4.5 Chloride 106 Carbon Dioxide 30.1 Anion Gap 7 BUN 7 L Creatinine 0.6 Estim Creat Clear Calc 126.7 eGFR > 60 BUN/Creatinine Ratio 12 Glucose 103 Calculated Osmolality 282 Calcium 8.6 Corrected Calcium 8.7 Total Bilirubin 0.3 AST 10 ALT < 7 L Alkaline Phosphatase 84 Total Protein 5.8 Albumin 3.9 Globulin 1.9 L Albumin/Globulin Ratio 2.1 Assessment & Plan A&P Narrative # Anemia of blood loss in the setting of chronic liver disease secondary to alcohol and methamphetamine use although the LFTs appear to be normal Plan Agree with 1 unit of PRBC Patient could have an upper GI bleed or a lower GI bleed or both Since she brought a stool sample which was bright My recommendation would be to initial colonoscopy Clear liquid diet GoLytely prep Consent obtained for fiberoptic colonoscopy with possible biopsies possible therapeutic intervention under intravenous moderate sedation Advised complete abstinence from alcohol drugs that includes amphetamine and marijuana Will follow the patient We will decide after colonoscopy whether she needs an upper endoscopy prior to discharge Thank you very much for the opportunity to participate in the care of this patient Time Spent With Patient Time: Total time spent is greater than 50% in coordination of care (as documented) at patient's floor/unit and/or counseling patient:
--- NOTE | 2025-05-16 19:41 | ESDS_ITS ---
<Statement entered by Stacey Wilson MD - 05/16/25 22:17> Pt is hemodynamically stable and cleared to be discharge home to self-care with Protonix BID and Carafate QID for 30 days. Pt is notified she must take the medications and follow up outpatient with primary care. Patient was seen and examined by me personally. I have directly supervised and reviewed documentation by the team resident and agree with its findings. ------- Plan of care was discussed with the attending, Dr. Gerson Wilson, PGY-2 Planned Discharge Date 05/16/25 DS: Providers Provider Date of admission: 05/12/25 11:37 Primary care physician: Micha Valverde MD Admitting Provider: Leah Nieto MD Attending Provider on Admission: Leah Nieto MD Consults: 05/12/25 10:39 Consult to Gastroenterology Stat Comment: Consulting Provider: Raheem Garcia Attending Provider on DC: RESIDENT Marcial Discharging Provider: RESIDENT Marcial DS: Diagnosis Problem List Completed Was Problem List Reviewed/Reconciled?: Yes Hospital Course Hospital Course Hospital course: Summary 35-year-old female past medical history gestational diabetes, methamphetamine, marijuana show presented to the ED with hematochezia weakness, dizziness with no loss of consciousness, admitted for GI bleed workup and management. 05/12/2025 while the patient was in the ED she noted to be tachycardic with a MAP of 65 at bedside, hemoglobin 7.4, MCV 77, lactic acid 2.4, with BP 100/69. She received NS bolus and pantoprazole 80 mg x 1 and 1 unit PRBC transfusion during her stay. For which she report a significant improvement in the dizziness, weakness posttransfusion. Dr. Garcia was consulted and recommended colonoscopy and recommended blood transfusion if hemoglobin less than 7. When admitted to the tele unit, another unit of packed RBC was transfused and repeat H&H and done noted and improve hemoglobin and hematocrit level for sensation. Patient was still having bowel movement but noted a decrease in melena. She was started on GoLytely prep per GI recommendation for colonoscopy. Colonoscopy revealed rectal hemorrhoids. Patient diet was changed to clear liquid diet until 10 AM n.p.o. for upper endoscopy the following day due to downtrending stable H&H, GI recommended EGD. EGD showed duodenal ulcer then her diet was changed to Gerd diet. Throughout the hospital course patient other problems were managed and her condition improved remarkably with progression of hospital course. Further plan to discharge the patient home since she is stable and responded well to hospital treatment. Discharge recommendation: - Follow-up with PCP within 1-2 weeks of discharge - Protonix 40mg BID - Carafate 1g PO QID - Advised smoking cessation and alcohol use - Avoid foods and drink that would irritate the ulcer: alcohol, coffee, fatty food, spicy food - Return to the ED or call EMS is symptoms return and/or worsen If you don't have a PCP, you can make an appointment at the [facility]: [address] [place] [address] Hospital Diagnoses: #GI bleed, UGIB vs LGIB #Microcytic anemia # Anemia 2/2 to chronic liver disease 2/2 methamphetamine and alcohol use #Hemorrhoids #Peptic ulcer/Duodenal ulcer s/p EGD #MASLD #Methamphetamine use #Marijuana use #Cirrhosis Time spent discussing smoking cessation with patient: 3 to 10 minutes Status at Discharge Functional status at discharge: independent ambulation Overall status at discharge: patient is back to baseline Time Spent with Patient Time attestation: Total time spent providing and/or coordinating discharge services: 36 min Time spent: Greater than 30 minutes Exam Vital Signs Temp Pulse Resp BP Pulse Ox O2 Del Method O2 Flow Rate 97.1 F 85 18 98/55 L 97 Room Air 1 05/16/25 12:05/16/25 12:05/16/25 12:05/16/25 12:05/16/25 12:05/16/25 12:05/15/25 18:20 Discharge Plan Plan Patient Disposition: HOME (Self Care) Patient condition on transfer: Stable Care Plan Goals: Follow up with PCP within 1 week of discharge. Prescriptions/Referrals Prescriptions/Med Rec: New pantoprazole 40 mg tablet,delayed release (DR/EC) 40 mg PO BID Qty: 60 0RF sucralfate [Carafate] 1 gram tablet 1 g PO QID Qty: 120 0RF Referrals: Micha Valverde MD [Primary Care Provider] - Patient/Caregiver Discharge Instructions Education Materials: Anemia, Colonoscopy, Upper GI Endoscopy Print Language: Hong Konger Stand Alone Forms: Chantal Award Info., Patient Portal Info Letter Discharge Order Discharge Orders: Discharge (Routine); Ordered 05/16/25 Ordered By: Stacey Wilson Quality Discharge Quality Measures VTE prophylaxis Attestestation MD Attestation I attest that I was physically present for the evaluation, physical examination, lab and imaging review of the patient with the residents. I discussed the case with the residents and agree with the findings and plans of care as documented above. Leah Nieto MD
== END 2025-05-16 13:05 | disposition home or self-care (01) | DRG 241 ==
LOC: SERX 05-12 10:57 → SERHOLD 05-12 11:47 → S3NX 05-12 15:01
PROVIDERS: Physician Assistant; Specialist; Admitting Provider Student in an Organized Health Care Education/Training Program; Emergency Provider Family Medicine; PCP Family Medicine; Visit Provider Student in an Organized Health Care Education/Training Program
PROC: 0DJD8ZZ Inspection of Lower Intestinal Tract, Via Natural or Artificial Opening Endoscopic (ICD-10-PCS; CPT 45378; principal; 2025-05-14 13:15)
PROC: (CPT 43239; principal; 2025-05-15 15:45)
DX: K26.4 Chronic or unspecified duodenal ulcer with hemorrhage (principal); K74.60 Unspecified cirrhosis of liver; F15.90 Other stimulant use, unspecified, uncomplicated; F12.90 Cannabis use, unspecified, uncomplicated; F17.200 Nicotine dependence, unspecified, uncomplicated; K64.9 Unspecified hemorrhoids; K29.71 Gastritis, unspecified, with bleeding; K70.9 Alcoholic liver disease, unspecified; Z71.6 Tobacco abuse counseling; Z79.899 Other long term (current) drug therapy; D50.0 Iron deficiency anemia secondary to blood loss (chronic); Z86.32 Personal history of gestational diabetes
CPT/HCPCS: 36415; 36430; 76705; 80053; 80074; 80307; 80320; 81001; 81025; 82270; 83605; 83735; 84443; 84484; 85014; 85018; 85025; 85610; 85730; 86703; 86850; 86900; 86901; 86921; 86922; 86923; 87015; 87040; 87045; 87046; 87205; 87899; 93005; 93225; 96361; 96365; 96375; 96376; 99284; J1200; J2250; J2470; J2543; J3010; J7030; P9016; A9270; G0480